=== PATIENT | female | born 1955 | race Caucasian/White ===

== ENCOUNTER 2017-12-02 05:12 | Observation (INO) | payer BC, SELFPAY ==
[2017-12-02] VITALS (13 sets, daily range): BP systolic 112–145; BP diastolic 52–87; PULSE 56–71; RESP 12–24; TEMP 36.6–36.9; O2SAT 97–100; BMI 23.3; BMI 22.2; BMI 22.3
--- NOTE | 2017-12-02 05:30 | RAD_ITS ---
STUDY: X-RAY CHEST REASON FOR EXAM: Female, 61 years old. Abdominal pain TECHNIQUE: Frontal view COMPARISON: 10/13/2017 FINDINGS: The lungs are clear and expanded. There is no demonstrated pleural abnormality. Normal size heart. Normal mediastinum and soraida. Normal visualized pulmonary arteries. Normal visualized aortic arch and descending thoracic aorta. Normal visualized thoracic spine. Normal visualized ribs, clavicles, and shoulders. There is no demonstrated abnormality of the visualized soft tissue structures of the upper abdomen. RAD/Chest 1 View (Portable) IMPRESSION: Normal x-ray examination of the chest. Electronically Signed: Rick Hernandez MD at 5:58 EDT , Service support ,
--- NOTE | 2017-12-02 05:30 | EKG12_ITS ---
Test Reason : CP Blood Pressure : / mmHG Vent. Rate : 061 BPM Atrial Rate : 061 BPM P-R Int : 174 ms QRS Dur : 080 ms QT Int : 420 ms P-R-T Axes : 057 018 007 degrees QTc Int : 422 ms Normal sinus rhythm Low voltage QRS Nonspecific ST abnormality Abnormal ECG Confirmed by ZANDER ARORA, DAMON ([id number]), photographic editor BEL SCHMIDT ([id number]) on 12/03/2017 11:52:34 AM Referred By: ULISES Confirmed By:DAMON FERMIN MD
--- NOTE | 2017-12-02 05:34 | ED.DCSUM_ITS ---
- ER Visit Summary Date of Service: 12/02/17 Chief Complaint: Epigastric pain History of Present Illness: The patient is a 61 F sudden epigastric pain awakening her at 4:30 AM. States severe cramping. Denies pain into the chest. No radicular symptoms. No nausea or vomiting. States had a bowel movement prior to arrival. Denies any diarrhea. No blood in the stools that she noted. States cramping sensation that was a 10 initially, has subsided down to a 2. History of cholecystectomy and hysterectomy. History of hypertension. Denies tobacco history. Denies diabetes history. Stress test years ago. No history of heart cath. States had similar symptoms previously, however unclear when and what exact diagnosis was given. Physical Examination: General: Alert and oriented ?3, no acute distress HEENT: Normocephalic, atraumatic. Moist mucosa membranes Neck: supple, nontender. Cardiovascular: Regular rate and rhythm, no murmurs Respiratory: Normal breath sounds, symmetric, no distress Abdomen: Soft, nontender, nondistended. Negative McBurney's or Ordoñez's tenderness. No guarding or rebound. Extremities: Nontender, no edema, pulses intact ?4 Neuro: no focal neurological deficits. Test Results: EKG: Sinus rate of 61, no ST changes. Isolated T-wave inversion in leads III. Troponin negative. Chest x-ray negative. Abdominal labs, WBC 3.8. Hemoglobin 13.8. Potassium 3.5. Creatinine 0.98. Lipase 152. ALT 103, AST 138, total bili 0.5. CT abdomen pelvis pending Emergency Department Course and Treatment: Patient nonsurgical abdomen. She came in concerns of cardiac symptoms. Cardiac workup an EKG negative. Heart scores a 2. During evaluation had intermittent transient episode increasing abdominal discomfort. Patient's lab did note slight elevation of liver enzymes. History of cholecystectomy. Secondary to this, CT abdomen pelvis IV, contrast ordered for further evaluation. In addition with atypical epigastric symptoms with sweats, plan will be to obtain repeat troponin 3 hours from first draw. Treatment Plan: [] Disposition: Pending Impression: Epigastric abdominal pain This note was generated with [employer] dictation software. It may contain incorrect words, spelling, and punctuation that were not noted in review of the chart prior to signing ED Disposition - Plan for ED Patient: Chief Complaint: Chest Pain Referrals: Wil Mar DO [Primary Care Provider] -
[2017-12-02 05:45] LABS: Absolute Lymphocyte Count 1.12 X10^3/ul (0.83-4.51); Absolute Neutrophil Count 2.2 X10^3/uL (2.0-7.7); Basophil# 0.03 X10^3/uL; Basophil% 0.8 % (0-1); Eosinophil# 0.12 X10^3/uL; Eosinophils% 3.2 % (0-5); Hematocrit 40.9 % (37-47); Hemoglobin 13.8 g/dl (12.0-15.0); Lymphocyte # 1.12 X10^3/ul (4.0); Lymphocyte % 29.8 % (19-41); Mean Corp Hgb Conc 33.7 g/gl (32-36); Mean Corpuscular Hgb 31.8 pg (27.0-32.0); Mean Corpuscular Volume 94.2 fL (81-99); Mean Platelet Vol. 10.3 fl (6.2-12.0); Neutrophil # 2.19 X10^3/uL (2.7-7.7); Neutrophil % 58.2 % (47-70); Platelet Count 158 K/mm3 (150-450); RBC Distribution Width CV 12.4 % (11.6-14.6); RBC Distribution Width SD 41.8 fl (35.1-43.9); Red Blood Count 4.34 M/mm3 (4.2-5.4); White Blood Count 3.8 K/mm3 (4.4-11.0)
--- NOTE | 2017-12-02 05:54 | ED.RN ---
pt having episode of abd cramping, n/t to extremities, sob. placed on 2L NC and encouraged to slow down breathing.
[2017-12-02 05:58] LABS: ALB/GLOB Ratio 1.1 RATIO (0.9-2.4); AST(SGOT) 138 U/L (15-37); Alanine Aminotransfer ALT/SGPT 103 U/L (13-56); Albumin, Serum 3.4 g/dL (3.2-5.0); Alkaline Phosphatase 65 U/L (45-117); Anion Gap 8 (5-15); BUN 21 mg/dL (7-18); BUN/Creat Ratio 21.5 RATIO (10-20); Calcium,Total 8.7 mg/dL (8.5-10.1); Chloride 110 mmol/L (98-107); Creatinine, Serum 0.98 mg/dL (0.55-1.02); EST Glomerular Filtration Rate 61 mL/min (>60); Est Glom Filt Rate - Afr Amer 74 mL/min (>60); Estimated Creatinine Clearance 52.72 ml/min; Globulin 3.2 g/dL (2.2-4.2); Glucose 91 mg/dL (74-106); Lipase 158 U/L (73-393); Potassium 3.5 mmol/L (3.5-5.1); Protein, Total 6.6 g/dL (6.4-8.2); Sodium Level 143 mmol/L (136-145)
--- NOTE | 2017-12-02 06:11 | CT_ITS ---
STUDY: CT ABDOMEN AND PELVIS WITH CONTRAST REASON FOR EXAM: Female, 61 years old. Dizziness RADIATION DOSAGE (If Supplied By Facility): CTDIvol = ( 10.79 ) mGy, DLP = ( 372.23 ) mGycm TECHNIQUE: Transaxial images were obtained from the dome of the diaphragm to the symphysis pubis without oral contrast. 100 ml of Isovue 300 contrast was administered. Sagittal and coronal images were reconstructed. Individualized dose optimization techniques were used for this CT. COMPARISON: None. FINDINGS: The visualized lung bases are unremarkable. The visualized portions of the heart are within normal limits. Normal liver. There has been a cholecystectomy. Bile ducts are slightly dilated. Normal spleen. Normal pancreas. Normal bilateral adrenal glands. Normal right kidney. Normal left kidney. Normal visualized stomach. Normal small intestine. Normal colon. The appendix is not identified. There is calcified plaque in the abdominal aorta. There is NO aneurysm. Normal inferior vena cava. Normal retroperitoneum. Normal urinary bladder. There has been a hysterectomy. There is NO ascites or free air, abscess or adenopathy. Normal abdominal wall. There has been lower back surgery. There is NO acute bony abnormality. CT/Abdomen/Pelvis W IV Cont ONLY IMPRESSION: There has been a cholecystectomy. Bile ducts are slightly dilated. Normal visualized stomach. Normal small intestine. Normal colon. The appendix is not identified. There is calcified plaque in the abdominal aorta. There is NO aneurysm. Normal inferior vena cava. Normal retroperitoneum. There has been a hysterectomy. There is NO ascites or free air, abscess or adenopathy. Electronically Signed: Rick Hernandez MD at 7:38 EDT , Service support ,
[2017-12-02 06:20] LABS: POSITIVE COUNT NO; POSITIVE DIFFERENTIAL NO; POSITIVE MORPHOLOGY NO
--- NOTE | 2017-12-02 08:08 | NURSING ---
HOSPITALIST FOR DR MENDES
--- NOTE | 2017-12-02 08:13 | ED.VISSUMM ---
- ER Visit Summary Date of Service: 12/02/17 Chief Complaint: [Addendum to initial dictation by Dr. Neville Cook] History of Present Illness: The patient is a 61 F [presented to the emergency department with epigastric discomfort radiating into both arms, shortness of breath, diaphoresis, and lightheadedness. Patient was evaluated primarily by Dr. Neville Cook who turned care over to me awaiting a CT result of the abdomen and pelvis as well as a delta troponin. After obtaining history from patient and evaluating patient I have concern about possible etiology of her epigastric discomfort and feel patient should be admitted for further workup and evaluation. CT scan of the abdomen and pelvis was essentially unremarkable.] Physical Examination: [HEENT-PERRLA, EOMI. Cranial nerves II through XII grossly intact. TMs clear. Mucous membranes moist. No adenopathy. Cardiovascular-regular rate and rhythm without murmur or ectopy Lungs-clear to auscultation, chest wall stable without crepitus or subcu emphysema Abdomen-normoactive bowel sounds, soft, nontender, no rebound or rigidity, no peritoneal signs. Extremities-intact ?4, normal range of motion, normal pulses, atraumatic] Test Results: [] Emergency Department Course and Treatment: [Delta troponin pending] Treatment Plan: [Admit] Disposition: [Admit] Impression: [Epigastric/chest pain-rule out acute coronary syndrome] This note was generated with [employer] dictation software. It may contain incorrect words, spelling, and punctuation that were not noted in review of the chart prior to signing ED Disposition - Plan for ED Patient: Chief Complaint: Chest Pain Referrals: Wil Mar DO [Primary Care Provider] -
[2017-12-02] MEDS: Thyroid 60 MG Tablet PO (11:01)
[2017-12-02] MEDS: buPROPion (XL) 300 MG TABLET.XL PO (11:01)
[2017-12-02] MEDS: Losartan Potassium 25 MG Tablet PO (11:01)
[2017-12-02] MEDS: Heparin Injection 5,000 UNITS/ML Syringe 5000 UNITS SC ×2 (11:02→21:29)
[2017-12-02] MEDS: Pantoprazole Sodium 40 MG Tablet PO (16:33)
--- NOTE | 2017-12-02 19:30 | PCM.HP.STD ---
Problem List (1) Chest pain Status: Acute Qualifiers: Chest pain type: precordial pain Qualified Code(s): R07.2 - Precordial pain (2) Essential hypertension, benign Status: Chronic (3) Hypothyroidism (acquired) Status: Chronic History of Present Illness Date of Admission: 12/02/17 Chief Complaint: Chest pain. Patient is a 61 years old female who presents with chest pain, admitted on 12/02/17. She woke up around 4 AM with upper abdominal pain, which was intense cramping pain. She had diaphoresis and shortness of breath with the pain but no nausea, vomiting, dizziness, palpitation, or headache. The pain resolved spontaneously after about 30 minutes, but the pain traveled to both arms and had tingling in both hands. She had intermittent milder pain in the same area, lasted much less than first pain in the ED, but they resolved spontaneously also. She also had some pinching pain that were brief in the left upper mid chest also. She has history of hypertension, but no other risk factors. He was on cholesterol medications in the past, but medication was discontinued after she lost weight, and had been controlled with diet since then. She has no family history of cardiovascular disease. Past Medical History Past Medical History (Chronic Problems): Chronic Problems Essential hypertension, benign (Chronic) Hypothyroidism (acquired) (Chronic) Allergies duloxetine HCl [From Cymbalta] Allergy (Verified 10/13/16 15:33) Rash Home Medications: Ambulatory Orders Medication Instructions Recorded Aspirin [Aspirin, Baby] 81 mg PO DAILY@0800 10/13/16 Bupropion HCl [Wellbutrin Xl] 300 mg PO DAILY 12/02/17 Losartan Potassium [Cozaar] 25 mg PO DAILY 12/02/17 Thyroid [[place] Thyroid] 60 mg PO DAILY 12/02/17 Surgical History: cholecystectomy, hysterectomy Psychiatric History: No pertinent psych hx Lives: Spouse/ Significant Other Smoking Status: Never smoker - *Family History Maternal History Items: No pertinent history Review of Systems Comment: ROS: In general: Patient has been in good health, denied of any constitutional symptoms, such as weight loss, or gain, fever, chills, or night sweats. Patient denied of any profound fatigue. HEENT: Unremarkable. Patient denied of any dizziness, chronic headache, blurred vision, double vision, dry mouth, or nasal congestion. CV/respiratory: See HPI. GI: Patient denied any abdominal pain, nausea, vomiting, diarrhea, constipation, melena, or hematochezia. : Patient denied any significant urinary symptoms. Neurology: Unremarkable. There is no history of seizure as an adult. Psychological: Unremarkable. ?. Endocrine: Unremarkable. Musculoskeletal: Unremarkable. VTE Information - Inpt Only VTE Present on Admission: Yes VTE Mechan Device Prophylaxis: Knee High KENNY Hose VTE Pharm Prophylaxis ordered?: Yes Patient Problems: Active and Suspected Problems Chest pain (Acute) Objective: In general, patient is a well-nourished and developed adult. HEENT: Head is atraumatic, and normocephalic. Pupils are equal, round, and reactive to light and accommodations. Neck is supple. There is no lymphadenopathy, or thyromegaly. Oral mucosa is pink, and moist. There are no lesions. Heart: Auscultation is normal with regular rhythm and rate. There is no extra heart sounds, or murmurs. S1 and S2 are present. Point of maximal impulse is not displaced. Lungs: Lungs are clear to auscultation bilaterally. There is no wheezing, or crackles. Abdomen: Abdominal wall is non-tender, and non-distended. There is no palpable mass or organomegaly. Normoactive bowel sounds are present. Extremities: There is no cyanosis or clubbing. Peripheral pulses are palpable. There is no edema. Skin: There are no any skin discoloration or lesions. Neurological: CN II - XII are intact. Sensory and motor functions are grossly normal with no obvious deficit. Cerebellar functions are within normal range. Gait was not tested. - Physical Exam Vital Signs Temp Pulse Resp BP Pulse Ox 98.4 F 62 15 126/65 H 98 12/02/17 16:10 12/02/17 16:18 12/02/17 16:10 12/02/17 16:10 12/02/17 16:10 Oxygen Flow Rate (L/min) 2 Oxygen Delivery Method Room Air Weight: 129 lb 10.109 oz Body Mass Index (BMI) 22.2 Intake and Output for Last 24 Hours 11/30/17 12/01/17 12/02/17 23:59 23:59 23:59 Intake Total 1130 / 1130 Balance 1130 / 1130 Laboratory Tests Past 24 Hrs 12/02/17 12/02/17 12/02/17 08:20 12:15 18:49 Troponin I < 0.02 < 0.02 Pending Diagnostic Data Chest X-Ray 12/02/17 05:30 IMPRESSION: Normal x-ray examination of the chest. Electronically Signed: Rick Hernandez MD at 5:58 EDT , Service support , Abdomen/Pelvis CT 12/02/17 06:11 IMPRESSION: There has been a cholecystectomy. Bile ducts are slightly dilated. Normal visualized stomach. Normal small intestine. Normal colon. The appendix is not identified. There is calcified plaque in the abdominal aorta. There is NO aneurysm. Normal inferior vena cava. Normal retroperitoneum. There has been a hysterectomy. There is NO ascites or free air, abscess or adenopathy. Electronically Signed: Rick Hernandez MD at 7:38 EDT , Service support , EKG: Normal sinus rhythm rate 61, no significant acute change, appearance similar to previous test in 2017. Assessment/Plan Active and Suspected Problems Chest pain (Acute) Patient is a 61 years old female who presents with chest pain, admitted on 12/02/17. She woke up around 4 AM with upper abdominal pain, which was intense cramping pain. She had diaphoresis and shortness of breath with the pain but no nausea, vomiting, dizziness, palpitation, or headache. The pain resolved spontaneously after about 30 minutes, but the pain traveled to both arms and had tingling in both hands. She had intermittent milder pain in the same area, lasted much less than first pain in the ED, but they resolved spontaneously also. She also had some pinching pain that were brief in the left upper mid chest also. She has history of hypertension, but no other risk factors. He was on cholesterol medications in the past, but medication was discontinued after she lost weight, and had been controlled with diet since then. She has no family history of cardiovascular disease. #1 Chest pain. Somewhat atypical, but hand binder stripper symptoms and associated symptoms of diaphoresis and dyspnea are concerning. Serial troponin to rule out myocardial infarction. Plan to proceed with stress nuclear myocardial perfusion scan in AM. Start PPI empirically. #2 Essential hypertension. Continue losartan. #3 Hypothyroid. Continue armour thyroid. VTE prophylaxis: Heparin SQ. GI prophylaxis: PPI po. Patient is full code. Disposition: Home in 1 to 2 days. Code Visit OBSV E&M: 83719 Initial observation care L3
--- NOTE | 2017-12-02 19:43 | HP.PCM_ITS ---
Problem List (1) Chest pain Status: Acute Qualifiers: Chest pain type: precordial pain Qualified Code(s): R07.2 - Precordial pain (2) Essential hypertension, benign Status: Chronic (3) Hypothyroidism (acquired) Status: Chronic History of Present Illness Date of Admission: 12/02/17 Chief Complaint: Chest pain. Patient is a 61 years old female who presents with chest pain, admitted on 12/02/17. She woke up around 4 AM with upper abdominal pain, which was intense cramping pain. She had diaphoresis and shortness of breath with the pain but no nausea, vomiting, dizziness, palpitation, or headache. The pain resolved spontaneously after about 30 minutes, but the pain traveled to both arms and had tingling in both hands. She had intermittent milder pain in the same area, lasted much less than first pain in the ED, but they resolved spontaneously also. She also had some pinching pain that were brief in the left upper mid chest also. She has history of hypertension, but no other risk factors. He was on cholesterol medications in the past, but medication was discontinued after she lost weight, and had been controlled with diet since then. She has no family history of cardiovascular disease. Past Medical History Past Medical History (Chronic Problems): Chronic Problems Essential hypertension, benign (Chronic) Hypothyroidism (acquired) (Chronic) Allergies duloxetine HCl [From Cymbalta] Allergy (Verified 10/13/16 15:33) Rash Home Medications: Ambulatory Orders Medication Instructions Recorded Aspirin [Aspirin, Baby] 81 mg PO DAILY@0800 10/13/16 Bupropion HCl [Wellbutrin Xl] 300 mg PO DAILY 12/02/17 Losartan Potassium [Cozaar] 25 mg PO DAILY 12/02/17 Thyroid [[place] Thyroid] 60 mg PO DAILY 12/02/17 Surgical History: cholecystectomy, hysterectomy Psychiatric History: No pertinent psych hx Lives: Spouse/ Significant Other Smoking Status: Never smoker - *Family History Maternal History Items: No pertinent history Review of Systems Comment: ROS: In general: Patient has been in good health, denied of any constitutional symptoms, such as weight loss, or gain, fever, chills, or night sweats. Patient denied of any profound fatigue. HEENT: Unremarkable. Patient denied of any dizziness, chronic headache, blurred vision, double vision, dry mouth, or nasal congestion. CV/respiratory: See HPI. GI: Patient denied any abdominal pain, nausea, vomiting, diarrhea, constipation, melena, or hematochezia. : Patient denied any significant urinary symptoms. Neurology: Unremarkable. There is no history of seizure as an adult. Psychological: Unremarkable. ?. Endocrine: Unremarkable. Musculoskeletal: Unremarkable. VTE Information - Inpt Only VTE Present on Admission: Yes VTE Mechan Device Prophylaxis: Knee High KENNY Hose VTE Pharm Prophylaxis ordered?: Yes Patient Problems: Active and Suspected Problems Chest pain (Acute) Objective: In general, patient is a well-nourished and developed adult. HEENT: Head is atraumatic, and normocephalic. Pupils are equal, round, and reactive to light and accommodations. Neck is supple. There is no lymphadenopathy, or thyromegaly. Oral mucosa is pink, and moist. There are no lesions. Heart: Auscultation is normal with regular rhythm and rate. There is no extra heart sounds, or murmurs. S1 and S2 are present. Point of maximal impulse is not displaced. Lungs: Lungs are clear to auscultation bilaterally. There is no wheezing, or crackles. Abdomen: Abdominal wall is non-tender, and non-distended. There is no palpable mass or organomegaly. Normoactive bowel sounds are present. Extremities: There is no cyanosis or clubbing. Peripheral pulses are palpable. There is no edema. Skin: There are no any skin discoloration or lesions. Neurological: CN II - XII are intact. Sensory and motor functions are grossly normal with no obvious deficit. Cerebellar functions are within normal range. Gait was not tested. - Physical Exam Vital Signs Temp Pulse Resp BP Pulse Ox 98.4 F 62 15 126/65 H 98 12/02/17 16:10 12/02/17 16:18 12/02/17 16:10 12/02/17 16:10 12/02/17 16:10 Oxygen Flow Rate (L/min) 2 Oxygen Delivery Method Room Air Weight: 129 lb 10.109 oz Body Mass Index (BMI) 22.2 Intake and Output for Last 24 Hours 11/30/17 12/01/17 12/02/17 23:59 23:59 23:59 Intake Total 1130 / 1130 Balance 1130 / 1130 Laboratory Tests Past 24 Hrs 12/02/17 12/02/17 12/02/17 08:20 12:15 18:49 Troponin I < 0.02 < 0.02 Pending Diagnostic Data Chest X-Ray 12/02/17 05:30 IMPRESSION: Normal x-ray examination of the chest. Electronically Signed: Rick Hernandez MD at 5:58 EDT , Service support , Abdomen/Pelvis CT 12/02/17 06:11 IMPRESSION: There has been a cholecystectomy. Bile ducts are slightly dilated. Normal visualized stomach. Normal small intestine. Normal colon. The appendix is not identified. There is calcified plaque in the abdominal aorta. There is NO aneurysm. Normal inferior vena cava. Normal retroperitoneum. There has been a hysterectomy. There is NO ascites or free air, abscess or adenopathy. Electronically Signed: Rick Hernandez MD at 7:38 EDT , Service support , EKG: Normal sinus rhythm rate 61, no significant acute change, appearance similar to previous test in 2017. Assessment/Plan Active and Suspected Problems Chest pain (Acute) Patient is a 61 years old female who presents with chest pain, admitted on 12/02/17. She woke up around 4 AM with upper abdominal pain, which was intense cramping pain. She had diaphoresis and shortness of breath with the pain but no nausea, vomiting, dizziness, palpitation, or headache. The pain resolved spontaneously after about 30 minutes, but the pain traveled to both arms and had tingling in both hands. She had intermittent milder pain in the same area, lasted much less than first pain in the ED, but they resolved spontaneously also. She also had some pinching pain that were brief in the left upper mid chest also. She has history of hypertension, but no other risk factors. He was on cholesterol medications in the past, but medication was discontinued after she lost weight, and had been controlled with diet since then. She has no family history of cardiovascular disease. #1 Chest pain. Somewhat atypical, but paramedic symptoms and associated symptoms of diaphoresis and dyspnea are concerning. Serial troponin to rule out myocardial infarction. Plan to proceed with stress nuclear myocardial perfusion scan in AM. Start PPI empirically. #2 Essential hypertension. Continue losartan. #3 Hypothyroid. Continue armour thyroid. VTE prophylaxis: Heparin SQ. GI prophylaxis: PPI po. Patient is full code. Disposition: Home in 1 to 2 days. Code Visit OBSV E&M: [id number] Initial observation care L3
[2017-12-03 00:05] VITALS: PULSE 58
[2017-12-03 01:30] VITALS: BP 109/71; PULSE 58; RESP 16; TEMP 36.5; O2SAT 98
[2017-12-03 04:24] VITALS: PULSE 62
[2017-12-03 05:33] LABS: Hemoglobin 13.6 g/dl (12.0-15.0); Mean Corpuscular Hgb 32.2 pg (27.0-32.0); Mean Corpuscular Volume 94.6 fL (81-99); Mean Platelet Vol. 10.2 fl (6.2-12.0); Platelet Count 146 K/mm3 (150-450); RBC Distribution Width CV 12.3 % (11.6-14.6); RBC Distribution Width SD 41.9 fl (35.1-43.9); Red Blood Count 4.23 M/mm3 (4.2-5.4); White Blood Count 3.7 K/mm3 (4.4-11.0)
[2017-12-03 05:35] LABS: Scan Indicated on CBC? Y/N NO
[2017-12-03] MEDS: Losartan Potassium 25 MG Tablet PO (05:56)
[2017-12-03] MEDS: Aspirin E.C. 81 MG Tablet PO (05:56)
[2017-12-03] MEDS: Thyroid 60 MG Tablet PO (05:56)
[2017-12-03 06:10] LABS: Anion Gap 7 (5-15); BUN 18 mg/dL (7-18); BUN/Creat Ratio 23.1 RATIO (10-20); Calcium,Total 8.3 mg/dL (8.5-10.1); Chloride 113 mmol/L (98-107); Creatinine, Serum 0.78 mg/dL (0.55-1.02); EST Glomerular Filtration Rate 80 mL/min (>60); Est Glom Filt Rate - Afr Amer 97 mL/min (>60); Estimated Creatinine Clearance 66.23 ml/min; Glucose 89 mg/dL (74-106); Potassium 3.9 mmol/L (3.5-5.1); Sodium Level 145 mmol/L (136-145); Thyroid Stim Hormone (TSH) 0.27 uIU/mL (0.358-3.74)
[2017-12-03 08:29] VITALS: BP 109/69; PULSE 65; RESP 12; TEMP 36.8; O2SAT 100
[2017-12-03] MEDS: buPROPion (XL) 300 MG TABLET.XL PO (08:37)
[2017-12-03] MEDS: Pantoprazole Sodium 40 MG Tablet PO (08:37)
--- NOTE | 2017-12-03 09:10 | STRESSREP ---
Stress Test Report Date: 12/03/2017 Procedure: Exercise tolerance test/imaging study Indications: Chest pain Consent: Per the patient Procedure: The patient exercised on a Nikolai protocol for 10 minutes and 30 seconds completing Stage III and 1 minute 30 seconds of Stage IV achieving a peak heart rate of 153 bpm (95 % predicted maximal heart rate) with a peak blood pressure 160/64 mmHg and a peak MET capacity of 12 METs. The baseline ECG demonstrated normal sinus rhythm. The peak exercise ECG demonstrated Somatic/motion artifact with no obvious ECG changes. There were no cardiac dysrhythmias pretest, during exercise, or recovery. The functional capacity was considered good. There was no complaint of chest discomfort during exercise or recovery. The examination was discontinued secondary to leg discomfort. Impression: 1. Technically adequate (percent predicted maximal heart rate greater than 85%) exercise tolerance test 2. Peak exercise ECG with somatic/motion artifact with no obvious ECG changes 3. There were no cardiac dysrhythmias pretest, during exercise, or recovery. 4. Nuclear images pending Myocardial perfusion imaging study: Technique: The patient was injected with 11.1 mCi of technetium 99m Cardiolite and subsequently rest SPECT Cardiolite nuclear imaging was obtained in the horizontal long, vertical long, and short axis views. The patient exercised on a Nikolai protocol for 10 minutes and 30 seconds completing Stage III and 1 minute 30 seconds of Stage IV achieving a peak heart rate of 153 bpm (95 % predicted maximal heart rate) with a peak blood pressure 160/64 mmHg and a peak MET capacity of 12 METs. The patient was injected with 33.2 mCi of technetium 99m Cardiolite and subsequently stress SPECT Cardiolite nuclear imaging was obtained in the horizontal long, vertical long, and short axis views. A gated Cardiolite study at peak stress was obtained. Interpretation: Rest and stress SPECT Cardiolite nuclear imaging status post realignment, normalization, and attenuation correction, demonstrates the appearance of relative uniform tracer uptake and myocardial perfusion appearing within normal limits. There is end systolic thickening and brightening. The gated Cardiolite study demonstrates myocardial thickening and inward wall motion. The reported LVEF is 72 %. Impression: 1. Rest and stress SPECT Cardiolite nuclear imaging demonstrate relative uniform tracer uptake and myocardial perfusion appearing within normal limits. 2. The gated Cardiolite study reports an LVEF of 72 %. This note was generated with [employer] software. It may contain incorrect words, spelling, and punctuation that were not noted in checking the note before signing.
--- NOTE | 2017-12-03 09:16 | STRESSREP_ITS ---
Stress Test Report Date: 12/03/2017 Procedure: Exercise tolerance test/imaging study Indications: Chest pain Consent: Per the patient Procedure: The patient exercised on a Nikolai protocol for 10 minutes and 30 seconds completing Stage III and 1 minute 30 seconds of Stage IV achieving a peak heart rate of 153 bpm (95 % predicted maximal heart rate) with a peak blood pressure 160/64 mmHg and a peak MET capacity of 12 METs. The baseline ECG demonstrated normal sinus rhythm. The peak exercise ECG demonstrated Somatic/motion artifact with no obvious ECG changes. There were no cardiac dysrhythmias pretest, during exercise, or recovery. The functional capacity was considered good. There was no complaint of chest discomfort during exercise or recovery. The examination was discontinued secondary to leg discomfort. Impression: 1. Technically adequate (percent predicted maximal heart rate greater than 85% ) exercise tolerance test 2. Peak exercise ECG with somatic/motion artifact with no obvious ECG changes 3. There were no cardiac dysrhythmias pretest, during exercise, or recovery. 4. Nuclear images pending Myocardial perfusion imaging study: Technique: The patient was injected with 11.1 mCi of technetium 99m Cardiolite and subsequently rest SPECT Cardiolite nuclear imaging was obtained in the horizontal long, vertical long, and short axis views. The patient exercised on a Nikolai protocol for 10 minutes and 30 seconds completing Stage III and 1 minute 30 seconds of Stage IV achieving a peak heart rate of 153 bpm (95 % predicted maximal heart rate) with a peak blood pressure 160/64 mmHg and a peak MET capacity of 12 METs. The patient was injected with 33.2 mCi of technetium 99m Cardiolite and subsequently stress SPECT Cardiolite nuclear imaging was obtained in the horizontal long, vertical long, and short axis views. A gated Cardiolite study at peak stress was obtained. Interpretation: Rest and stress SPECT Cardiolite nuclear imaging status post realignment, normalization, and attenuation correction, demonstrates the appearance of relative uniform tracer uptake and myocardial perfusion appearing within normal limits. There is end systolic thickening and brightening. The gated Cardiolite study demonstrates myocardial thickening and inward wall motion. The reported LVEF is 72 %. Impression: 1. Rest and stress SPECT Cardiolite nuclear imaging demonstrate relative uniform tracer uptake and myocardial perfusion appearing within normal limits. 2. The gated Cardiolite study reports an LVEF of 72 %. This note was generated with [employer] software. It may contain incorrect words, spelling, and punctuation that were not noted in checking the note before signing.
[2017-12-03 11:00] VITALS: PULSE 73
--- NOTE | 2017-12-03 11:12 | PCM.DC ---
- Discharge Diagnoses Current Active Problems: Current Active and Chronic Problems Chest pain (Acute) Essential hypertension, benign (Chronic) Hypothyroidism (acquired) (Chronic) Reason(s) for Visit for Discharge Instructions: Chest pain You will use the following diet at home:: Cardiac Your food should be the consistency of: Regular Your liquids should be the consistency of: Regular/Thin Discharge Activity: Return to Normal Activity Allergies/Adverse Reactions: Allergies duloxetine HCl [From Cymbalta] Allergy (Verified 10/13/16 15:33) Rash Medications to take at Discharge Aspirin [Aspirin, Baby] 81 mg PO DAILY@0800 10/13/16 Bupropion HCl [Wellbutrin Xl] 300 mg PO DAILY 12/02/17 Losartan Potassium [Cozaar] 25 mg PO DAILY 12/02/17 Thyroid [[place] Thyroid] 60 mg PO DAILY 12/02/17 Pantoprazole Sodium [Protonix] 40 mg PO DAILY #30 tab 12/03/17 The following prescriptions were given: Pantoprazole Sodium [Protonix] 40 mg PO DAILY #30 tab Primary Care Physician: Wil Mar DO [Primary Care Provider] - Please follow up with your Primary Care Physician in: 5 to 7 days.
--- NOTE | 2017-12-03 11:14 | PCM.DC.SUM ---
Discharge Date and Diagnosis - Problem List Patient Problems: Active and Suspected Problems Chest pain (Acute) Date of Admission: 12/02/17 Date of Discharge: 12/03/17 - Primary Discharge Diagnosis Active and Suspected Problems Chest pain (Acute) - Secondary Discharge Diagnosis Chronic Problems Essential hypertension, benign (Chronic) Hypothyroidism (acquired) (Chronic) Hospital Course and Treatment Imaging Results: 12/03/17 05:55 Nuclear Stress Test - Treadmil [NM] AM (NON MEDS) NEGATIVE. Diagnostic Data Chest X-Ray 12/02/17 05:30 IMPRESSION: Normal x-ray examination of the chest. Electronically Signed: Rick Hernandez MD at 5:58 EDT , Service support , Abdomen/Pelvis CT 12/02/17 06:11 IMPRESSION: There has been a cholecystectomy. Bile ducts are slightly dilated. Normal visualized stomach. Normal small intestine. Normal colon. The appendix is not identified. There is calcified plaque in the abdominal aorta. There is NO aneurysm. Normal inferior vena cava. Normal retroperitoneum. There has been a hysterectomy. There is NO ascites or free air, abscess or adenopathy. Electronically Signed: Rick Hernandez MD at 7:38 EDT , Service support , Refinery Operator Polymerization Plant: none. Operations: None Procedures: Stress test Summary of Care Provided: Patient is a 61 years old female who presents with chest pain, admitted on 12/02/17. She woke up around 4 AM with upper abdominal pain, which was intense cramping pain. She had diaphoresis and shortness of breath with the pain but no nausea, vomiting, dizziness, palpitation, or headache. The pain resolved spontaneously after about 30 minutes, but the pain traveled to both arms and had tingling in both hands. She had intermittent milder pain in the same area, lasted much less than first pain in the ED, but they resolved spontaneously also. She also had some pinching pain that were brief in the left upper mid chest also. She has history of hypertension, but no other risk factors. He was on cholesterol medications in the past, but medication was discontinued after she lost weight, and had been controlled with diet since then. She has no family history of cardiovascular disease. #1 Chest pain. Serial troponin were negative, underwent stress nuclear myocardial perfusion scan, which was negative. She did not have any more episodes of above symptoms. Started on pantoprazole empirically, plan to continue for 2 month for possible GI origin of chest pain. Consider further work up as outpatient, particularly if any of abdominal symptoms recurs. Follow up with PCP in 5 to 7 days. #2 Essential hypertension. Continue losartan. #3 Hypothyroid. Continue armour thyroid. VTE prophylaxis: Heparin SQ. GI prophylaxis: PPI po. Patient is full code. Disposition: Home Discharge Diet: - - cardiac. Discharge Activity: Return to Normal Activity Home Medications: Medications to take at Discharge Aspirin [Aspirin, Baby] 81 mg PO DAILY@0800 10/13/16 Bupropion HCl [Wellbutrin Xl] 300 mg PO DAILY 12/02/17 Losartan Potassium [Cozaar] 25 mg PO DAILY 12/02/17 Thyroid [[place] Thyroid] 60 mg PO DAILY 12/02/17 Pantoprazole Sodium [Protonix] 40 mg PO DAILY #30 tab 12/03/17 Following Prescrptions Were Given to Patient: Pantoprazole Sodium [Protonix] 40 mg PO DAILY #30 tab Primary Care Physician: Wil Mar DO [Primary Care Provider] - Please follow up with your Primary Care Physician in: 5 to 7 days. Disposition: Home Patient Condition:: Good Medical Necessity - Tobacco Use Smoking Status: Never smoker Meaningful Use Info Meaningful Use Diagnoses (Choose all that apply): None applicable Code Visit OBSV E&M: 48314 Observation care discharge
--- NOTE | 2017-12-03 11:19 | DS.PCM_ITS ---
Discharge Date and Diagnosis - Problem List Patient Problems: Active and Suspected Problems Chest pain (Acute) Date of Admission: 12/02/17 Date of Discharge: 12/03/17 - Primary Discharge Diagnosis Active and Suspected Problems Chest pain (Acute) - Secondary Discharge Diagnosis Chronic Problems Essential hypertension, benign (Chronic) Hypothyroidism (acquired) (Chronic) Hospital Course and Treatment Imaging Results: 12/03/17 05:55 Nuclear Stress Test - Treadmil [NM] AM (NON MEDS) NEGATIVE. Diagnostic Data Chest X-Ray 12/02/17 05:30 IMPRESSION: Normal x-ray examination of the chest. Electronically Signed: Rick Hernandez MD at 5:58 EDT , Service support , Abdomen/Pelvis CT 12/02/17 06:11 IMPRESSION: There has been a cholecystectomy. Bile ducts are slightly dilated. Normal visualized stomach. Normal small intestine. Normal colon. The appendix is not identified. There is calcified plaque in the abdominal aorta. There is NO aneurysm. Normal inferior vena cava. Normal retroperitoneum. There has been a hysterectomy. There is NO ascites or free air, abscess or adenopathy. Electronically Signed: Rick Hernandez MD at 7:38 EDT , Service support , Bpm Solution Architect: none. Operations: None Procedures: Stress test Summary of Care Provided: Patient is a 61 years old female who presents with chest pain, admitted on 12/02/17. She woke up around 4 AM with upper abdominal pain, which was intense cramping pain. She had diaphoresis and shortness of breath with the pain but no nausea, vomiting, dizziness, palpitation, or headache. The pain resolved spontaneously after about 30 minutes, but the pain traveled to both arms and had tingling in both hands. She had intermittent milder pain in the same area, lasted much less than first pain in the ED, but they resolved spontaneously also. She also had some pinching pain that were brief in the left upper mid chest also. She has history of hypertension, but no other risk factors. He was on cholesterol medications in the past, but medication was discontinued after she lost weight, and had been controlled with diet since then. She has no family history of cardiovascular disease. #1 Chest pain. Serial troponin were negative, underwent stress nuclear myocardial perfusion scan, which was negative. She did not have any more episodes of above symptoms. Started on pantoprazole empirically, plan to continue for 2 month for possible GI origin of chest pain. Consider further work up as outpatient, particularly if any of abdominal symptoms recurs. Follow up with PCP in 5 to 7 days. #2 Essential hypertension. Continue losartan. #3 Hypothyroid. Continue armour thyroid. VTE prophylaxis: Heparin SQ. GI prophylaxis: PPI po. Patient is full code. Disposition: Home Discharge Diet: - - cardiac. Discharge Activity: Return to Normal Activity Home Medications: Medications to take at Discharge Aspirin [Aspirin, Baby] 81 mg PO DAILY@0800 10/13/16 Bupropion HCl [Wellbutrin Xl] 300 mg PO DAILY 12/02/17 Losartan Potassium [Cozaar] 25 mg PO DAILY 12/02/17 Thyroid [[place] Thyroid] 60 mg PO DAILY 12/02/17 Pantoprazole Sodium [Protonix] 40 mg PO DAILY #30 tab 12/03/17 Following Prescrptions Were Given to Patient: Pantoprazole Sodium [Protonix] 40 mg PO DAILY #30 tab Primary Care Physician: Wil Mar DO [Primary Care Provider] - Please follow up with your Primary Care Physician in: 5 to 7 days. Disposition: Home Patient Condition:: Good Medical Necessity - Tobacco Use Smoking Status: Never smoker Meaningful Use Info Meaningful Use Diagnoses (Choose all that apply): None applicable Code Visit OBSV E&M: 70237 Observation care discharge
== END 2017-12-03 11:13 | disposition home or self-care (01) ==
LOC: ED 06:04 → PCU 08:28
PROVIDERS: Admitting Provider Hospitalist; Emergency Provider Emergency Medicine; Family Provider Student in an Organized Health Care Education/Training Program; PCP Student in an Organized Health Care Education/Training Program; Visit Provider Hospitalist
DX: R07.89 Other chest pain (principal); I10 Essential (primary) hypertension; E03.9 Hypothyroidism, unspecified; Z79.899 Other long term (current) drug therapy; Z79.82 Long term (current) use of aspirin
CPT/HCPCS: 36415; 71045; 74177; 78452; 80048; 80053; 83690; 84443; 84484; 85025; 85027; 93005; 93017; 96360; 96361; 96372; 99218; 99285; A9500; J7030; J7040; Q9967; A4216; G0378

== ENCOUNTER → 2018-05-23 09:28 | Outpatient (CLI) | payer BC, SELFPAY ==
[2018-05-23 11:00] LABS: Hematocrit 39.8 % (37-47); Hemoglobin 13.3 g/dl (12.0-15.0); Mean Corp Hgb Conc 33.4 g/gl (32-36); Mean Corpuscular Hgb 31.4 pg (27.0-32.0); Mean Corpuscular Volume 94.1 fL (81-99); Mean Platelet Vol. 10.9 fl (6.2-12.0); Platelet Count 157 K/mm3 (150-450); RBC Distribution Width CV 12.7 % (11.6-14.6); RBC Distribution Width SD 42.9 fl (35.1-43.9); Red Blood Count 4.23 M/mm3 (4.2-5.4); White Blood Count 3.4 K/mm3 (4.4-11.0)
[2018-05-23 11:02] LABS: Scan Indicated on CBC? Y/N NO
[2018-05-23 11:18] LABS: Progesterone Level 0.16 ng/mL (See Comment)
[2018-05-23 11:20] LABS: Hemoglobin A1c 5.1 % (4.2-6.3)
[2018-05-23 11:28] LABS: Estradiol < 11.0 pg/mL; Free T3 3.3 pg/mL (2.18-3.98); T4 Free Direct 0.71 ng/dL (0.76-1.46); Thyroid Stim Hormone (TSH) 0.44 uIU/mL (0.358-3.74)
[2018-05-24 09:47] LABS: DHEA Sulfate 6.5 ug/dL (29.4-220.5)
== END ==
PROVIDERS: Visit Provider Obstetrics & Gynecology
DX: Z78.0 Asymptomatic menopausal state (principal)
CPT/HCPCS: 36415; 82533; 82627; 82670; 83036; 84144; 84403; 84439; 84443; 84481; 85027; 82626

== ENCOUNTER → 2018-12-21 | Outpatient (CLI) | payer BC, SELFPAY ==
[2017-12-02 09:44] VITALS: BMI 22.2
[2018-12-21 13:32] LABS: Hematocrit 44.9 % (37-47); Hemoglobin 14.9 g/dl (12.0-15.0); Mean Corp Hgb Conc 33.2 g/gl (32-36); Mean Corpuscular Hgb 30.5 pg (27.0-32.0); Mean Corpuscular Volume 91.8 fL (81-99); Mean Platelet Vol. 11.1 fl (6.2-12.0); Platelet Count 197 K/mm3 (150-450); RBC Distribution Width CV 12.6 % (11.6-14.6); RBC Distribution Width SD 41.7 fl (35.1-43.9); Red Blood Count 4.89 M/mm3 (4.2-5.4); White Blood Count 3.8 K/mm3 (4.4-11.0)
[2018-12-21 13:38] LABS: Scan Indicated on CBC? Y/N NO
[2018-12-21 13:47] LABS: Estradiol < 11.0 pg/mL; Free T3 4.8 pg/mL (2.18-3.98); T4 Free Direct 0.92 ng/dL (0.76-1.46); Thyroid Stim Hormone (TSH) 0.02 uIU/mL (0.358-3.74)
[2018-12-21 14:06] LABS: Hemoglobin A1c 5.3 % (4.2-6.3)
[2018-12-21 14:35] LABS: Progesterone Level 0.32 ng/mL (See Comment)
[2018-12-23 13:01] LABS: DHEA Sulfate 9.7 ug/dL (29.4-220.5)
== END | disposition home or self-care (01) ==
LOC: WOBLAB 11:32
PROVIDERS: Visit Provider Obstetrics & Gynecology
DX: Z78.0 Asymptomatic menopausal state (principal)
CPT/HCPCS: 36415; 82533; 82627; 82670; 83036; 84144; 84403; 84439; 84443; 84481; 85027; 82626

== ENCOUNTER → 2018-12-26 | Outpatient (CLI) | payer BC, SELFPAY ==
[2018-12-26 14:08] VITALS: BMI 23.5
--- NOTE | 2018-12-26 15:10 | RAD_ITS ---
STUDY: X-RAY CHEST REASON FOR EXAM: Female, 63 years old. Pain TECHNIQUE: PA and lateral views of the chest. COMPARISON: 12/02/2017 chest x-ray FINDINGS: The Lung markings are similar to the prior study with minimal interstitial prominence within the right middle lobe stable since prior study. There is no demonstrated pleural abnormality. Normal size heart. Normal mediastinum and soraida. Normal visualized pulmonary arteries. There is atherosclerotic tortuosity of the aortic arch and descending thoracic aorta. There are diffuse degenerative changes of the visualized thoracic spine. Normal visualized ribs, clavicles, and shoulders. There is postoperative change in the right upper quadrant status post cholecystectomy. RAD/Chest PA and Lateral IMPRESSION: Degenerative changes, as described above. No demonstrated acute cardiopulmonary process. Electronically Signed: Yumiko Berg MD at 18:42 EDT Tel , Service support ,
== END | disposition home or self-care (01) ==
LOC: RAD 15:01
PROVIDERS: Family Provider Student in an Organized Health Care Education/Training Program; PCP Student in an Organized Health Care Education/Training Program; Referring Provider Surgery; Visit Provider Surgery
DX: R07.89 Other chest pain (principal)
CPT/HCPCS: 71046

== ENCOUNTER 2019-07-17 11:30 | Outpatient (RCR) | payer BC, SELFPAY ==
[2018-12-26 14:08] VITALS: BMI 23.5
--- NOTE | 2019-06-23 14:38 | HP.OTEVAL ---
Patient's Visit Information CINTHYA SHEEHAN is a 63 year old F, referred to Occupational Therapy by Wil Mar DO, with a diagnosis of Bilateral hand pain. Date of Evaluation: 06/22/19 Occupational Therapist: Harika Roy, OTR/Tariq - Subjective Subjective: Arrived and noted she was referred by Dr. Mar due to ongoing hand pain. She noted that she has psoriatic arthritis which she was diagnosed early adulthood. She noted that she has had increased pain in hands with increased nodule formation around DIPs of fingers. Jinny has concerns of further deformation of joint sin hands and noted further pain in MP of bilateral thumbs. She was also referred to vehicle fare collector but have not follow up yet but is planning on scheduling an appointment in upcoming weeks. 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 She noted that she does not completed computer tasks but writing can be very limiting. - Pain R hand 8 Pain Intensity Range: 1, 8 L hand 8 Pain Intensity Range: 1, 8 - Objective Objective/Observation: Good skin integrity; nodules present at DIP of R hand and L hands. Nodules appear to be more present on right hand. Increased tenderness with palpation on bilateral thumb MP joints with some increase in joint size noted. No grinding noted at CMC but appears to have some instability. Tenderness with palpation around scaphoid. No ulnar drift present. - ROM Forearm: WFL Wrist: flexion R 0-51, L 0-73; extentsion R 0-45, L 0-44 Radial Abduction: R 0-36, L 0-36 MP: WFL PIP: WFL DIP: WFL ROM Comments: Jinny is able to form full composite fist. She exhibits increased nodules at all DIP of R and L hands. - Strength Executive Account Manager: R 39, L 42 Lateral Pinch: R 6, L 6 Tripod Pinch: R 3, L 1 Tip-to-Tip Pinch: R 1, L 2 Strength Comments: Pain noted with all resistive movements. - Sensation Thumb: R 3.61, L 2.83 Index: R 3.61, L 3.61 Middle: R 2.83, L 2.83 Ring: R 2.83, L 2.83 Little: R 2.83, L 2.83 Sensation Comments: Notes some tingling at times but nothing consisent. - Nine Hole Peg Right: 23.78 s Left: 21.69 s - Special Tests CMC Grind: negative - Quick DASH-Disab of Arm,Shoulder& Hand Quick DASH Score: 38.3325 - Goals Goal:: Jinny to increase B compensation/benefits specialist strength by 15-20 lbs topromote increased stength and stability of bilateral wrist and hands for ADL/IADls by d/c. Goal:: Jinny to be mod I to complete pain management techniques to decrease increased pain with resistive exercises 4/5 trials 80% of the time by d/c. Jinny to have no more than 1-2/10 pain consisently with use of pain management techniques 4/5 trials 80% of the time by d/c. Goal:: Jinny to exhibit proper wrist and finger ergonomics with daily tasks to promote joint integrity and manage pain 4/5 trials 80% of the time by d/c. Goal:: Jinny to be (i)- mod I to complete all ADl/IADls tasks with a/e as needed and ergonomic tools for gardening and sewing to promote increased ability to complete ADl/IADls 4/5 trials 80% of the time by d/c. Goal:: Jinny to be mod I to complete daily HEp to promote strength, stability, and pain management techniques 4/5 trials 80% of the time to promote management of b wrist pain and increased particpation in ADL/IADLS by d/c. - Rehabilitation General Assessment: Cinthya Stearns was referred to occupational therapy due to ongoing pain in wrist and hands. She has significant PMH for psoriatic arthritis and exhibits increased nodule formation around DIPs of all fingers. Nodules appear more present on right dominant hand and she noted she will experience numbness and tingling at times in hands. She has had past lumbar fusion and may need second spinal surgery. She exhibits generalized weakness throughout bilateral wrist and hands. Skilled OT warranted to promote increased wrist stability, general strengthening, ROM, ergonomics, pain management, and joint protection strategies to promote increased ability to completed use of bilateral hands and decrease pain with resistive movements. Rehabilitation Potential: Good - Anticipated Interventions Anticipated Interventions: A/AAROM/PROM, Strengthening, Modalities, Orthoses, Joint Protection/Energy Conservation, Ergonomic Education, Fine Motor Coord/Aldo, ADL Training, Caregiver Training, Home Program - Visit Plan Frequency: 2x /Week Duration: 4 Weeks General Plan: Jinny to complete 2x weekly OT for the next 4 weeks to promote increased ROM, stability, strength, joint protection and ergonomics of B wrist and hands, and general ability to return to PLOF for all ADL/IADls with ability to complete pain management techniques by d/c. TEXT: Thank you for the opportunity to evaluate your patient. For Medicare and Medicare HMO plans, please review the plan of care and approve it. It will need to be FAXED BACK to us at [phone] for Medicare purposes. Please let me know if there are questions or concerns regarding this plan of care. Physician Signature: Date:
--- NOTE | 2019-08-10 10:11 | HP.OTDCSUM ---
HP - OT D/C Summary It has been my pleasure to treat RENÉ SHEEHAN under orders from Wil Mar DO, for the diagnosis of Bilateral hand pain for a total of 8 visit(s). Please see the following information for a summary of their discharge status. - Overall Improvement % Improvement: 80 - Objective Objective/Function: Completed new measurements: Strength: - clinique counter manager R 40, L 36. - lateral 10, L 7. - tripod R 6, L '4. - pincer R 3, L 2. Positive R hand reverse phalens test, Positive on left hand for reverse phalens. Noted increased symptoms on R hand. - Goals Patient Goals: Regain Mobility, Regain Strength, Decrease Pain, Improve Fine Motor Skills, Use Hand/Wrist/Arm Normally Again, Sleep Better, Decrease Tingling/Numbness, Increase ROM, Be More Independent in ADLS, Resume Former Household Responsibilities (Cooking,Cleaning,Yard, etc.), Resume Hobbies Goal:: Jinny to increase B clinique counter manager strength by 15-20 lbs topromote increased stength and stability of bilateral wrist and hands for ADL/IADls by d/c. Goal:: Jinny to be mod I to complete pain management techniques to decrease increased pain with resistive exercises 4/5 trials 80% of the time by d/c. Jinny to have no more than 1-2/10 pain consisently with use of pain management techniques 4/5 trials 80% of the time by d/c. Goal:: Jinny to exhibit proper wrist and finger ergonomics with daily tasks to promote joint integrity and manage pain 4/5 trials 80% of the time by d/c. Goal:: Jinny to be (i)- mod I to complete all ADl/IADls tasks with a/e as needed and ergonomic tools for gardening and sewing to promote increased ability to complete ADl/IADls 4/5 trials 80% of the time by d/c. Goal:: Jinny to be mod I to complete daily HEp to promote strength, stability, and pain management techniques 4/5 trials 80% of the time to promote management of b wrist pain and increased particpation in ADL/IADLS by d/c. - Plan Plan: Jinny will be dc/'d at this time. Encouraged to follow up with accounting advisory services manager. Pain has significantly subsided. She is to call with questions/concerns. - D/C Information If there are questions or concerns regarding this patient's occupational therapy, please fell free to call me at [phone]. Thank you for the referral of this patient. Sincerely, Harika Roy, OTR/L
== END 2019-07-17 19:00 | disposition home or self-care (01) ==
LOC: OT 11:30
PROVIDERS: Family Provider Student in an Organized Health Care Education/Training Program; PCP Student in an Organized Health Care Education/Training Program; Referring Provider Student in an Organized Health Care Education/Training Program; Visit Provider Student in an Organized Health Care Education/Training Program
DX: M79.641 Pain in right hand (principal); M79.642 Pain in left hand; M19.049 Primary osteoarthritis, unspecified hand
CPT/HCPCS: 97110; 97166; 97530; 97760; 97763

== ENCOUNTER 2019-09-18 08:00 | Emergency (ER) | payer BC, SELFPAY ==
[2018-12-26 14:08] VITALS: BMI 23.5
[2019-09-18 08:01] VITALS: BP 127/64; PULSE 69; RESP 17; TEMP 36.7; O2SAT 99; BMI 22.5
--- NOTE | 2019-09-18 08:22 | EKG12_ITS ---
Test Reason : CP Blood Pressure : / mmHG Vent. Rate : 058 BPM Atrial Rate : 058 BPM P-R Int : 170 ms QRS Dur : 082 ms QT Int : 388 ms P-R-T Axes : 063 -02 016 degrees QTc Int : 380 ms Sinus bradycardia Otherwise normal ECG Confirmed by LORI ARORA, NORBERTO ([id number]), food expeditor ANNA MARIE PHELPS ([id number]) on 09/20/2019 1:45:25 PM Referred By: /GRETEL Confirmed By:NORBERTO SANDOVAL MD
--- NOTE | 2019-09-18 08:23 | ED.VIS.CHEST ---
History of Present Illness Chief Complaint: Chest Pain Informant: Patient Narrative: Patient presenting for evaluation secondary to chest pain. Patient has an underlying history of hypertension and hypothyroidism. Patient states that intermittently over the course the last couple of weeks she has been getting chest pain. She reports this is noninducible, not caused by any sort of exertion. She reports that it is a sharp electrical type pain in her chest that does not radiate. Has been associated with any shortness of breath. Patient does state that she occasionally feels somewhat lightheaded with it. Patient reports that she was basically trying to explain it away for the last couple of weeks by increased stress or caffeine usage, but today the pain seems somewhat worse and that is what prompted her to come to the emergency department. She denies any recent infectious signs or symptoms such as fever cough nausea or vomiting. She denies any skin rashes of the chest. She denies any DVT or PE risk factors. Patient did have a normal nuclear stress test about 2 years ago. Review of systems otherwise negative. Past Medical History - Allergies and Home Meds Allergies/Adverse Reactions: Allergies duloxetine HCl [From Cymbalta] Allergy (Verified 09/18/19 08:01) Rash Primary Care Physician: Wil Mar DO [Primary Care Provider] - Past Medical History: - - Hypertension, hypothyroidism Surgical History: cholecystectomy, hysterectomy Smoking Status: Never smoker - Family History Maternal Family History: Family History (Last Updated 12/26/18 @ 14:08 by Mariah Nguyen) Aunt Breast cancer Mother Thyroid disorder Hypertension High cholesterol Father Hypertension Family History: Reports: No pertinent history Review of Systems All systems negative except as indicated General: Denies: Chills, Fever, Sweats Eyes: Denies: Visual changes - bilaterally, Diplopia ENT: Denies: Rhinorrhea, Sore throat Cardiovascular: Reports: Chest pain, - - Lightheadedness Respiratory: Denies: Dyspnea, Cough, Dyspnea on exertion Gastrointestinal: Denies: Abdominal pain, Nausea, Vomiting, Diarrhea, Melena, Hematochezia Genitourinary: Denies: Dysuria, Hematuria, Frequency Musculoskeletal: Denies: Back pain, Extremity Pain Skin: Denies: Rash, Wounds Neurological: Denies: Headache, Weakness, Numbness Physical Exam Vital Signs/Narrative: Vital Signs Temp Pulse Resp BP Pulse Ox 09/18/19 08:01 98.0 F 69 17 127/64 H 99 Inital Vital Signs reviewed: Yes General: Well nourished, Well developed, No Acute Distress Head: Normocephalic, Atraumatic Eyes: Perrl, EOMI ENT: Moist mucous membranes, No rhinorrhea Neck: Supple, Nontender Cardiovascular: Regular rate, Regular rhythm, No murmurs Respiratory: No distress, CTA bilaterally, Chest nontender Abdomen: Soft, Nontender, Nondistended, Normal bowel sounds Back: Nontender, Normal Inspection Extremities: Nontender, No edema Skin: Normal color, No rash Neurological: Alert, Oriented x3, Cranial nerves II-XII grossly intact, Normal Strength, Normal Sensation Psychological: Normal affect, Normal Mood Diagnostic/Tx/Re-eval - EKG Initial EKG Interpretation: - - Sinus bradycardia with rate of 58. Isoelectric ST segments, normal T waves. Normal [place] and QTc intervals. No evidence of acute ischemia or arrhythmia. - Medical Decision Making Patient presented for evaluation secondary to chest pain. Her history sounded rather atypical, but she does have a history of hypertension. Work-up was obtained. EKG demonstrated no ischemic signs. CBC chemistry and troponin found to be unremarkable. Patient's heart score is 2, and her symptoms seem rather atypical and she has had a negative nuclear stress test within the last 2 years. I do not believe that she requires admission for cardiac rule out. Patient is low risk I feel for pulmonary embolism as she has no risk factors. Pain likely is secondary to stress or other secondary factors and does not require hospital admission or stabilization. Patient was kept in the emergency department for a 3-hour rule out delta troponin that was also found to be negative. Again the patient has a low risk factor profile, I do not believe that she requires admission or further work-up. She had resolution of her pain with a dose of Toradol. She was given reassurance she will follow-up with her primary care physician. ED Disposition - Plan for ED Patient: Disposition: Home or Assisted Living Diagnosis: Chest pain Instructions: CHEST PAIN, Uncertain Cause Referrals: Wil Mar DO [Primary Care Provider] - 1 Week
[2019-09-18 08:47] LABS: Absolute Lymphocyte Count 0.85 X10^3/uL (0.83-4.51); Absolute Neutrophil Count 2.1 X10^3/uL (2.0-7.7); Basophil# 0.02 X10^3/uL; Basophil% 0.6 % (0-1); Eosinophil# 0.06 X10^3/uL; Eosinophils% 1.8 % (0-5); Hematocrit 45.2 % (37-47); Hemoglobin 14.8 g/dL (12.0-15.0); Lymphocyte # 0.85 X10^3/ul (4.0); Mean Corp Hgb Conc 32.7 g/dL (32-36); Mean Corpuscular Hgb 31.5 pg (27.0-32.0); Mean Corpuscular Volume 96.2 fL (81-99); Mean Platelet Vol. 10.1 fl (6.2-12.0); Monocyte# 0.27 X10^3/uL; Monocyte% 8.3 % (0-10); NRBC Flagged by Analyzer 0 % (0-5); Neutrophil # 2.07 X10^3/uL (2.7-7.7); Neutrophil % 63.3 % (47-70); Platelet Count 153 K/mm3 (150-450); RBC Distribution Width CV 12.2 % (11.6-14.6); RBC Distribution Width SD 43.5 fl (35.1-43.9); White Blood Count 3.3 K/mm3 (4.4-11.0)
[2019-09-18 09:08] LABS: Anion Gap 3 (5-15); BUN 22 mg/dL (7-18); BUN/Creat Ratio 23.7 RATIO (10-20); Calcium,Total 9.3 mg/dL (8.5-10.1); Chloride 112 mmol/L (98-107); Creatinine, Serum 0.93 mg/dL (0.55-1.02); EST Glomerular Filtration Rate 65 mL/min (>60); Est Glom Filt Rate - Afr Amer 78 mL/min (>60); Estimated Creatinine Clearance 54.16 ml/min; Glucose 74 mg/dL (74-106); Potassium 4.1 mmol/L (3.5-5.1); Sodium Level 144 mmol/L (136-145)
--- NOTE | 2019-09-18 09:22 | RAD_ITS ---
STUDY: X-RAY CHEST REASON FOR EXAM: Female, 63 years old. CHEST PAIN TECHNIQUE: PA and lateral views of the chest. COMPARISON: Comparison is made with prior study dated December 26, 2018. FINDINGS: EKG electrodes are seen. The lungs are clear and expanded. There is no demonstrated pleural abnormality. Normal size heart. Normal mediastinum and soraida. Normal visualized pulmonary arteries. There is atherosclerotic calcification of the aortic arch with tortuosity. There are diffuse degenerative changes of the visualized thoracic spine. Normal visualized ribs, clavicles, and shoulders. There is no demonstrated abnormality of the visualized soft tissue structures of the upper abdomen. RAD/Chest PA and Lateral IMPRESSION: No acute abnormality is seen. Electronically Signed: Marty Huerta, at 9:51 EST , Service support ,
[2019-09-18 10:10] VITALS: PULSE 61; RESP 15; O2SAT 96
[2019-09-18] MEDS: Ketorolac 15 MG/ML Vial IV (11:19)
[2019-09-18 11:21] VITALS: PULSE 53; RESP 17; O2SAT 96
[2019-09-18 12:28] VITALS: BP 101/67; PULSE 64; RESP 18; O2SAT 98
== END 2019-09-18 12:30 | disposition home or self-care (01) ==
PROVIDERS: Emergency Provider Emergency Medicine; PCP Student in an Organized Health Care Education/Training Program
DX: R07.9 Chest pain, unspecified (principal); R06.00 Dyspnea, unspecified; R42 Dizziness and giddiness; I10 Essential (primary) hypertension; E03.9 Hypothyroidism, unspecified; Z79.82 Long term (current) use of aspirin; Z79.899 Other long term (current) drug therapy
CPT/HCPCS: 71046; 80048; 84484; 85025; 93005; 96374; 99285; A4216

== ENCOUNTER → 2020-02-19 09:16 | Outpatient (CLI) | payer BC, SELFPAY ==
[2019-11-29 12:48] VITALS: BMI 21.2
--- NOTE | 2020-02-19 09:16 | STE_ITS ---
Reason For Study: CHEST PAIN Stress Results Maximum Predicted HR: 157 bpm Target HR: 133 bpm % Maximum Predicted HR: 90 % DurationHeart Rate Stage (mm:ss) (bpm) BP BASELINE 62 118/68 STAGE 1 3:00 83 128/60 STAGE 2 3:00 97 128/60 STAGE 3 3:00 116 140/60 STAGE 4 1:31 141 / RECOVERY 72 132/74 Stress Duration: 10:31 mm:ss Maximum Stress HR: 141 bpm Baseline Echocardiogram Findings Stress Echo Wall motion Data Resting WM Intermediate WM Stress WM Interpretation Summary Exercise stress echocardiogram. Stress protocol: Resting EKG demonstrates normal sinus rhythm with a rate of 59 bpm normal intervals are noted resting blood pressure is 118/68 mmHg. The patient exercised according to the regular Nikolai protocol for a total duration of 10 minutes and 30 seconds. The maximum heart rate attained was 141 bpm which was 89% of maximum predicted heart rate and a maximum workload of 13.4 metabolic equivalents. The patient maintained sinus rhythm throughout the recording. At rest there were no ST or T wave changes noted to suggest ischemia at peak exercise upsloping ST changes only were noted with no meet the criteria for ischemia. The test was discontinued due to the target heart rate being achieved. The peak blood pressure was 142/70 mmHg. Stress echocardiographic images. Resting and stress echocardiographic images were obtained demonstrating a resting ejection fraction of 60% and a peak ejection fraction of 75%. There was thickening of all curiel and reduction of left ventricular cavity size with peaking of ejection fraction as noted above. Normal thickening was noted and no wall motion abnormalities were noted to suggest ischemia. Conclusion: Normal exercise stress echo with no wall motion abnormalities to suggest ischemia. Excellent functional aerobic capacity. No arrhythmias noted. Compared to the previous stress test the functional capacity is unchanged Ordering Physician: Avi Batres Referring Physician: Avi Batres Performed By: Thelma Cash RDCS
== END ==
PROVIDERS: PCP Student in an Organized Health Care Education/Training Program; Referring Provider Internal Medicine Cardiovascular Disease; Visit Provider Internal Medicine Cardiovascular Disease
DX: R07.2 Precordial pain (principal)
CPT/HCPCS: 93017; 93350

== ENCOUNTER 2021-04-09 19:41 | Inpatient (IN) | payer BC, SELFPAY ==
[2021-04-09 19:43] VITALS: BP 130/78; PULSE 91; RESP 14; TEMP 36.1; O2SAT 92; BMI 21.4
--- NOTE | 2021-04-09 22:05 | RAD_ITS ---
STUDY: X-RAY CHEST REASON FOR EXAM: Female, 65 years old. SOB TECHNIQUE: Single AP portable view of the chest. COMPARISON: 09/18/2019 FINDINGS: Patchy airspace disease bilaterally compatible with COVID. No consolidation or effusion. There is no demonstrated pleural abnormality. Normal size heart. Normal mediastinum and soraida. Normal visualized pulmonary arteries. Normal visualized aortic arch and descending thoracic aorta. Normal visualized thoracic spine. Normal visualized ribs, clavicles, and shoulders. There is no demonstrated abnormality of the visualized soft tissue structures of the upper abdomen. RAD/Chest 1 View (Portable) IMPRESSION: Patchy airspace disease bilaterally suggesting COVID Electronically Signed: Javon Negro DO at 22:43 EDT Tel , Service support ,
--- NOTE | 2021-04-09 22:28 | EKG12_ITS ---
Test Reason : SOB Blood Pressure : / mmHG Vent. Rate : 087 BPM Atrial Rate : 087 BPM P-R Int : 164 ms QRS Dur : 078 ms QT Int : 366 ms P-R-T Axes : 054 -03 009 degrees QTc Int : 440 ms Normal sinus rhythm Normal ECG Confirmed by ZANDER ARORA, DAMON ([id number]), tape editor ANNA MARIE PHELPS ([id number]) on 04/14/2021 9:24:14 AM Referred By: RUEL Confirmed By:DAMON FERMIN MD
--- NOTE | 2021-04-09 22:29 | ED.VIS.DYS ---
HPI History of Present Illness Chief Complaint: Shortness of Breath Narrative Narrative: 65-year-old female on vaccinated for COVID-19 presenting on day 11 of Covid symptoms. She initially had symptom onset while she was in [place]. She had a fever of 100.8 at that time. She denies current fever. She denies body aches, chills, change in taste or smell. She does state that she has developed sharp inspiratory pain in the center of her chest today. Prior to that she describes dyspnea on exertion. When she exerts herself from the living room to the bedroom she feels lightheaded and short of breath. Patient has a history of high blood pressure and hypothyroidism. She denies cardiac history. She is not on any anticoagulation. No history of DVT/PE. She states she has no respiratory issues but does have an albuterol inhaler which she has had for a couple of years that was prescribed to her. Her primary care doctor prescribed her an antibiotic to help her with the course of her COVID-19 infection. Patient does admit to generalized fatigue as well. [facility] Medical History Anxiety and depression Chronic insomnia Essential (primary) hypertension Fibromyalgia GERD (gastroesophageal reflux disease) Hyperlipidemia Hypothyroidism (acquired) Osteoarthritis Psoriatic arthritis right breast/axilla pain RLS (restless legs syndrome) Home Medications bupropion HCl 300 mg PO DAILY 12/02/17 [History Last Taken 12/01/17 08:00] losartan 25 mg PO DAILY 12/02/17 [History Last Taken 12/01/17 08:00] clobetasol 0.05 % topical ointment 1 applic TOPICAL DAILY 11/21/19 [History Last Taken Unknown] lactobacillus combo no.11 15 billion cell sprinkle capsule 1 cap PO DAILY 11/21/19 [History Last Taken Unknown] omega 3-dai-kib-fish oil 1,600 mg-500 mg-800 mg/5 mL oral liquid 5 ml PO DAILY 11/21/19 [History Last Taken Unknown] turmeric 400 mg capsule 400 mg PO DAILY cap 11/21/19 [History Last Taken Unknown] albuterol sulfate 90 mcg/actuation aerosol inhaler 1 - 2 puff INHALATION Q4H PRN PRN 11/29/19 [History Last Taken Unknown] amitriptyline 10 mg tablet 10 mg PO DAILY 11/29/19 [History Last Taken Unknown] ascorbic acid (vitamin C) 1,000 mg tablet 1 g PO DAILY tab 11/29/19 [History Last Taken Unknown] cider zyyxeca-Gz-fkgupknsnwaappvp-tea 500 mg-100 mcg-300 mg-60 mg tab 1 tab PO BID 11/29/19 [History Last Taken Unknown] psyllium husk 0.52 gram capsule 1.04 g PO DAILY cap 11/29/19 [History Last Taken Unknown] thyroid (pork) 60 mg tablet 60 mg PO DAILY 11/29/19 [History Last Taken Unknown] cyanocobalamin (vitamin B-12) 1,000 mcg/mL oral drops 1 ml PO DAILY 07/09/20 [History Last Taken Unknown] furosemide 20 mg tablet 20 mg PO DAILY tab 07/09/20 [History Last Taken Unknown] meloxicam 15 mg PO DAILY 04/10/21 [History Last Taken Unknown] Allergy/AdvReac Type Severity Reaction Status Date / Time duloxetine HCl Allergy Rash Verified 07/09/20 12:26 [From Cylizalblu] Family History Aunt Breast cancer Mother Thyroid disorder Hypertension High cholesterol Father Hypertension Surgical History History of back surgery History of bilateral knee replacement History of hysterectomy History of laparoscopic cholecystectomy Social History Smoking Status: Never smoker alcohol intake: current alcohol intake frequency: holidays/special occasions only substance use type: does not use ROS ROS ED Constitutional Constitutional ED: Reports fever(s); Denies chills or sweats Eyes Eyes: Reports blurry vision and diplopia ENT ENT ED: Denies rhinorrhea or sore throat Cardiovascular Cardiovascular: Reports chest pain and racing heartbeat Respiratory/Chest Respiratory/Chest: Reports cough, dyspnea and dyspnea on exertion Gastrointestinal Gastrointestinal: Reports nausea; Denies abdominal pain, constipation, diarrhea or vomiting Genitourinary Genitourinary ED: Denies dysuria or hematuria Musculoskeletal Musculoskeletal: Denies arthralgias, back pain, myalgias or neck pain Integumentary Denies Abrasions or rash Neurologic Neurologic: Reports headache(s); Denies paresthesias EXAM Physical Exam Const Vital Signs: 04/09/21 19:43 04/09/21 23:08 04/09/21 23:21 Temperature 96.9 F L 99.0 F Temperature Source Temporal Oral Pulse Rate 91 91 81 Respiratory Rate 14 95 H 21 H Respiratory Effort Normal Short of Breath Respiratory Depth Shallow Respiratory Pattern Normal Blood Pressure 130/78 H 135/73 H 127/70 H Blood Pressure Mean 95 93 89 Pulse Ox 92 91 94 Oxygen Delivery Method Room Air Room Air Nasal Cannula Oxygen Flow Rate (L/min) 3 3 04/10/21 01:10 04/10/21 02:51 04/10/21 02:59 Temperature Temperature Source Pulse Rate 77 Respiratory Rate 26 H Respiratory Effort Respiratory Depth Respiratory Pattern Blood Pressure 122/72 H Blood Pressure Mean 88 Pulse Ox 93 86 91 Oxygen Delivery Method Nasal Cannula Room Air Nasal Cannula Oxygen Flow Rate (L/min) 3 3 Positive well nourished General Appearance ED: NAD; Negative for pallor HEENT Reports moist mucous membranes atraumatic Eyes PERRL and EOMs intact bilaterally General Eye ED: Negative for scleral icterus Neck no lymphadenopathy and supple Resp normal respiratory effort Resp Narrative: Rales noted in the right upper and lower lobe. Left lung appears to be clear. GI non-tender and non-distended Palpation: soft Extremity normal to inspection General Extremety ED: Negative for edema or tenderness General Extremity: Negative for edema Neuro oriented x3 and CN's II-XII intact bilaterally Sensorium / Orientation: alert and oriented to person Motor Exam: strength 5/5 throughout and general weakness Psych mental status grossly normal Thought Process: normal thought process Skin No no wounds General Skin Exam: Negative for jaundice or pallor Lesions: no lesions Rashes: no rashes MDM MDM MDM Narrative Medical decision making narrative: Patient presenting 1 day 11 of Covid symptoms. She is complaining of some generalized weakness, dyspnea with exertion, sharp retrosternal chest pain which is worse with deep inspiration. Fevers have resolved. Her EKG on my interpretation shows a normal sinus rhythm at 87 bpm without signs of ST elevation or depression. Chest x-ray on my interpretation shows patchy bilateral infiltrates consistent with COVID-19 and the radiologist does agree. CBC shows leukopenia and lymphopenia. Hemoglobin hematocrit are stable. Platelets are normal. CMP shows normal renal function and electrolytes. AST and ALT are slightly elevated. Lactic acid is negative. Procalcitonin is low. D-dimer is elevated. Patient had CTA of the chest which shows no PE or dissection however it does show bilateral pulmonary infiltrates consistent with COVID-19. Patient ambulated in the hallway and desatted to 86%. She was very symptomatic, lightheaded, short of breath. I feel she would benefit from inpatient treatment. Impression: 1. Hypoxia 2. History of COVID-19 pneumonitis 3. Generalized weakness 4. Chest pain Lab Data Attestation: I reviewed the patient's lab results. Labs: Laboratory Results - last 24 hr 04/09/21 04/09/21 04/09/21 23:25 23:25 23:25 WBC 3.8 L RBC 4.15 L Hgb 12.7 Hct 39.1 MCV 94.2 MCH 30.6 MCHC 32.5 RDW Std Deviation 42.7 RDW Coeff of [place] 12.3 Plt Count 153 MPV 9.9 Immature Gran % (Auto) 0.500 Neut % (Auto) 81.6 H Lymph % (Auto) 13.4 L [place] % (Auto) 4.5 Eos % (Auto) 0.0 Baso % (Auto) 0.0 Absolute Neuts (auto) 3.1 Absolute Lymphs (auto) 0.51 L Nucleated RBC % 0 Differential Comment SCANNED Diff Path Review May foll D-Dimer Quant (PE/DVT) 1.15 H* Sodium 135 L Potassium 4.2 Chloride 102 Carbon Dioxide 27.0 Anion Gap 6 BUN 11 Creatinine 0.58 Estim Creat Clear Calc 84.62 Est GFR (MDRD) Af Amer 134 Est GFR (MDRD) Non-Af 111 BUN/Creatinine Ratio 18.9 Glucose 93 Lactic Acid Calcium 8.1 L Total Bilirubin 0.30 AST 71 H ALT 66 H Alkaline Phosphatase 99 Troponin I High Sens 30 Total Protein 6.4 Albumin 2.5 L Globulin 3.9 Albumin/Globulin Ratio 0.6 L Procalcitonin 04/09/21 04/09/21 23:25 23:25 WBC RBC Hgb Hct MCV MCH MCHC RDW Std Deviation RDW Coeff of [place] Plt Count MPV Immature Gran % (Auto) Neut % (Auto) Lymph % (Auto) [place] % (Auto) Eos % (Auto) Baso % (Auto) Absolute Neuts (auto) Absolute Lymphs (auto) Nucleated RBC % Differential Comment Diff Path Review D-Dimer Quant (PE/DVT) Sodium Potassium Chloride Carbon Dioxide Anion Gap BUN Creatinine Estim Creat Clear Calc Est GFR (MDRD) Af Amer Est GFR (MDRD) Non-Af BUN/Creatinine Ratio Glucose Lactic Acid 0.7 Calcium Total Bilirubin AST ALT Alkaline Phosphatase Troponin I High Sens Total Protein Albumin Globulin Albumin/Globulin Ratio Procalcitonin 0.12 H Radiography Diagnostic Testing: Radiology Impression Chest X-Ray 04/09/21 22:05 IMPRESSION: Patchy airspace disease bilaterally suggesting COVID Electronically Signed: Javon Negro DO at 22:43 EDT Tel , Service support , Chest CTA 04/10/21 00:05 IMPRESSION: Normal CTA chest examination, without a demonstrated pulmonary embolism or arterial dissection. Bibasilar patchy airspace disease with early consolidation and small effusions. Likely infection such as COVID Electronically Signed: Javon Negro DO at 0:44 EDT Tel , Service support , Discharge Plan Triage Chief Complaint: Shortness of Breath ED Provider: Adam Brown Dx/Rx/DC Orders Prescriptions: No Action Probiotic 15 billion cell capsule, sprinkle 1 cap PO DAILY RF: 0 clobetasol 0.05 % ointment 1 applic TOPICAL DAILY RF: 0 turmeric 400 mg capsule 400 mg PO DAILY RF: 0 omega 8-uyn-nno-fish oil 1,600-500-800 mg/5 mL liquid 5 ml PO DAILY RF: 0 ascorbic acid (vitamin C) 1,000 mg tablet 1 g PO DAILY RF: 0 psyllium husk [Fiber Laxative (psyllium husk)] 0.52 gram capsule 1.04 g PO DAILY RF: 0 amitriptyline 10 mg tablet 10 mg PO DAILY RF: 0 cider sekquqj-Aq-ykiotrgnwmrnyfzo-tea 500 mg-100 mcg-300 mg-60 mg tab [id number] mm-riv-tw-mg tablet 1 tab PO BID RF: 0 albuterol sulfate 90 mcg/actuation HFA aerosol inhaler 1 - 2 puff INHALATION Q4H PRN PRN (Reason: Wheezing) RF: 0 furosemide 20 mg tablet 20 mg PO DAILY RF: 0 Vitamin B-12 1,000 mcg/mL drops 1 ml PO DAILY RF: 0 losartan 25 MG tablet 25 mg PO DAILY RF: 0 bupropion HCl 300 MG tablet extended release 24 hr 300 mg PO DAILY RF: 0 thyroid (pork) 60 mg tablet 60 mg PO DAILY RF: 0 meloxicam 15 mg tablet 15 mg PO DAILY RF: 0 Primary Care Provider: Wil Mar
[2021-04-09 23:08] VITALS: BP 135/73; PULSE 91; RESP 17; RESP 95; O2SAT 89; O2SAT 91
[2021-04-09 23:21] VITALS: BP 127/70; PULSE 81; RESP 21; TEMP 37.2; O2SAT 94
[2021-04-09 23:32] LABS: Absolute Lymphocyte Count 0.51 X10^3/uL (0.83-4.51); Absolute Neutrophil Count 3.1 X10^3/uL (2.0-7.7); Hematocrit 39.1 % (37-47); Hemoglobin 12.7 g/dL (12.0-15.0); Lymphocyte # 0.51 X10^3/ul (0.83-4.51); Lymphocyte % 13.4 % (19-41); Mean Corp Hgb Conc 32.5 g/dL (32-36); Mean Corpuscular Hgb 30.6 pg (27.0-32.0); Mean Corpuscular Volume 94.2 fL (81-99); Mean Platelet Vol. 9.9 fl (6.2-12.0); Monocyte# 0.17 X10^3/uL; Monocyte% 4.5 % (0-10); NRBC Flagged by Analyzer 0 % (0-5); Neutrophil # 3.12 X10^3/uL (2.7-7.7); Neutrophil % 81.6 % (47-70); POSITIVE DIFFERENTIAL YES; Platelet Count 153 K/mm3 (150-450); RBC Distribution Width CV 12.3 % (11.6-14.6); RBC Distribution Width SD 42.7 fl (35.1-43.9); Red Blood Count 4.15 M/mm3 (4.2-5.4); White Blood Count 3.8 K/mm3 (4.4-11.0)
[2021-04-09 23:43] LABS: Differential Indicated SCAN CRITERIA MET
[2021-04-09 23:50] LABS: D-Dimer Quantitative (DVT/PE) 1.15 FEU/ug/m (0.27-0.49)
[2021-04-09 23:52] LABS: ALB/GLOB Ratio 0.6 RATIO (0.9-2.4); AST(SGOT) 71 U/L (15-37); Alanine Aminotransfer ALT/SGPT 66 U/L (13-56); Albumin, Serum 2.5 g/dL (3.2-5.0); Alkaline Phosphatase 99 U/L (45-117); Anion Gap 6 (5-15); BUN 11 mg/dL (7-18); BUN/Creat Ratio 18.9 RATIO (10-20); Calcium,Total 8.1 mg/dL (8.5-10.1); Chloride 102 mmol/L (98-107); Creatinine, Serum 0.58 mg/dL (0.55-1.02); Differential Comment SCANNED; EST Glomerular Filtration Rate 111 mL/min (>60); Est Glom Filt Rate - Afr Amer 134 mL/min (>60); Estimated Creatinine Clearance 84.62 ml/min; Globulin 3.9 g/dL (2.2-4.2); Glucose 93 mg/dL (74-106); Potassium 4.2 mmol/L (3.5-5.1); Protein, Total 6.4 g/dL (6.4-8.2); Sodium Level 135 mmol/L (136-145); Troponin-I HS 30 pg/mL (3.0-54.0)
[2021-04-10] VITALS (13 sets, daily range): BP systolic 93–122; BP diastolic 57–72; PULSE 53–77; RESP 16–26; TEMP 36.3–37.2; O2SAT 86–98; BMI 22.4
[2021-04-10 00:02] LABS: Lactic Acid 0.7 mmol/L (0.4-1.9)
--- NOTE | 2021-04-10 00:05 | CT_ITS ---
STUDY: CTA CHEST REASON FOR EXAM: Female, 65 years old. chest pain/covid/elevated D-dimer RADIATION DOSAGE (If Supplied By Facility): CTDIvol = ( 10.49 ) mGy, DLP = ( 316.01 ) mGycm TECHNIQUE: The examination was performed with the intravenous administration of IV 75mL Isovue-370. Post-processing of the angiographic images was performed, with multiplanar reformation and 3D reconstruction. Individualized dose optimization techniques were used for this CT. COMPARISON: None. FINDINGS: Normal enhancement of the main pulmonary artery and right and left pulmonary arteries. Normal enhancement of the bilateral peripheral pulmonary arteries. There is no demonstrated pulmonary embolism. Normal thoracic aorta and visualized great vessels. There is no demonstrated aortic dissection. Normal heart and pericardium. Normal mediastinum. Normal hilar regions. Normal visualized trachea and bronchi. The lungs are well expanded. Patchy bibasilar airspace disease with early consolidation. Findings can BE seen with COVID. Some groundglass appearance. Trace bilateral effusions. Normal chest wall structures. Normal osseous structures. Normal visualized upper abdomen. CT/CTA Chest W/WO Contrast IMPRESSION: Normal CTA chest examination, without a demonstrated pulmonary embolism or arterial dissection. Bibasilar patchy airspace disease with early consolidation and small effusions. Likely infection such as COVID Electronically Signed: Javon Negro DO at 0:44 EDT Tel , Service support ,
[2021-04-10 00:15] LABS: Procalcitonin 0.12 ng/mL (0.00-0.09)
[2021-04-10] MEDS: Acetaminophen 500 MG Tablet 1000 MG PO (02:51)
--- NOTE | 2021-04-10 03:18 | HP.PCM.HOS_ITS ---
HPI - General General Date of Admission: 04/10/21 HPI Narrative RENÉ SHEEHAN, is a 65 F with a significant history of hypertension and hypothyroidism who presents to the emergency department with Covid-like symptoms. She reported on March 30, 2021 she and her went to a cabin in [place]. While there they (patient and ) felt sick. She reports shortness of breath; fevers; chills weakness; and feeling faint. She is unvaccinated for the COVID-19 virus. She returned back today was not area and got tested for COVID-19 virus on 04/07/2021. On 04/08/2021 at the test results came back and it was positive. At the emergent department patient was offered oxygen and to go home. However she stated that she felt so faint and wanted to stay at the hospital. Reportedly after ambulation her oxygen saturation dropped to the high 80s. [facility] Medical History Anxiety Anxiety and depression Chronic insomnia Chronic pain Depression Essential (primary) hypertension Fibromyalgia GERD (gastroesophageal reflux disease) Hyperlipidemia Hypothyroidism Hypothyroidism (acquired) Non-smoker Osteoarthritis Psoriatic arthritis Rheumatoid arthritis right breast/axilla pain RLS (restless legs syndrome) Home Medications bupropion HCl 300 mg PO DAILY 12/02/17 [History Last Taken 04/08/21 06:00] losartan 25 mg PO DAILY 12/02/17 [History Last Taken 04/08/21 06:00] clobetasol 0.05 % topical ointment 1 applic TOPICAL DAILY 11/21/19 [History Last Taken 04/08/21 06:00] lactobacillus combo no.11 15 billion cell sprinkle capsule 1 cap PO BID 11/21/19 [History Last Taken 04/09/21 21:00] omega 7-rsu-uta-fish oil 1,600 mg-500 mg-800 mg/5 mL oral liquid 5 ml PO DAILY 11/21/19 [History Last Taken 04/08/21 12:00] turmeric 400 mg capsule 400 mg PO DAILY cap 11/21/19 [History Last Taken 04/08/21 12:00] albuterol sulfate 90 mcg/actuation aerosol inhaler 1 - 2 puff INHALATION Q4H PRN PRN 11/29/19 [History Last Taken 04/09/21 12:00] amitriptyline 10 mg tablet 10 mg PO DAILY 11/29/19 [History Last Taken 04/08/21 18:00] ascorbic acid (vitamin C) 1,000 mg tablet 1 g PO DAILY tab 11/29/19 [History Last Taken 04/09/21 06:00] cider xmzykhb-Wu-axvbpvxsowufvvxn-tea 500 mg-100 mcg-300 mg-60 mg tab 1 tab PO BID 11/29/19 [History Last Taken 04/09/21 18:00] psyllium husk 0.52 gram capsule 1.04 g PO DAILY cap 11/29/19 [History Last Taken 04/08/21 12:00] thyroid (pork) 60 mg tablet 60 mg PO DAILY 11/29/19 [History Last Taken 04/09/21 06:00] cyanocobalamin (vitamin B-12) 1,000 mcg/mL oral drops 1 ml PO DAILY 07/09/20 [History Last Taken 04/09/21 06:00] furosemide 20 mg tablet 20 mg PO DAILY tab 07/09/20 [History Last Taken 04/08/21 06:00] meloxicam 15 mg PO DAILY 04/10/21 [History Last Taken 04/08/21 12:00] Allergy/AdvReac Type Severity Reaction Status Date / Time duloxetine HCl Allergy Rash Verified 07/09/20 12:26 [From Juvenal] Family History Aunt Breast cancer Mother Thyroid disorder Hypertension High cholesterol Father Hypertension Surgical History History of back surgery History of bilateral knee replacement History of cholecystectomy History of hysterectomy History of laparoscopic cholecystectomy Social History Smoking Status: Never smoker alcohol intake: current alcohol intake frequency: holidays/special occasions only substance use type: does not use ROS ROS Narrative Constitutional: Reports fatigue; chills and fever. Eyes: Denies blurry vision, change in eye color, change in vision, discharge from eye(s), double vision, erythema, eye pain, loss of vision or other HEENT: Denies abnormal hearing, dysphagia, ear pain, epistaxis, headache(s), hearing loss, nasal congestion, nasal discharge, post nasal drip, sinus p ressure, sore throat or other Cardiovascular: Denies chest pain. Denies orthopnea and paroxysmal nocturnal dyspnea Respiratory/Chest: Reports productive cough and shortness of breath. Gastrointestinal: Denies abdominal pain, coffee ground emesis, constipation, diarrhea, dyspepsia, hematemesis, hematochezia, loose stools, melena, nausea, vomiting or other Genitourinary: Denies burning urination, difficulty urinating, dysuria, hematuria, nocturia, urinary frequency, urinary hesitancy, urinary incontinence, urinary urgency or other Musculoskeletal: Denies arthralgias, back pain, joint pain, joint stiffness, joint swelling, neck pain or other Neurologic: Denies abnormal gait, abnormal speech, confusion, disequilibrium, dizziness, focal weakness, headache(s), numbness, paresthesias, seizure-like activity, seizures, syncope, tingling, tremor(s) or other Psychiatric: Denies anxiety, depression, homicidal ideation, suicidal ideation or other Endocrinology: Denies change in body appearance, cold intolerance, excessive sweating, heat intolerance, polydipsia, polyuria or other Hematologic/Lymphatic: Denies anemia, easy bleeding, easy bruising, lymphadenopathy or other Integumentary: Denies ulcer on buttocks. Allergic/Immunologic: Denies rhinitis, hives, eczema, asthma or other Vital Signs Vital Signs Vital Signs: 04/09/21 19:43 04/09/21 23:08 04/09/21 23:21 Temperature 96.9 F L 99.0 F Temperature Source Temporal Oral Pulse Rate 91 91 81 Respiratory Rate 14 95 H 21 H Respiratory Effort Normal Short of Breath Respiratory Depth Shallow Respiratory Pattern Normal Blood Pressure 130/78 H 135/73 H 127/70 H Blood Pressure Mean 95 93 89 Pulse Ox 92 91 94 Oxygen Delivery Method Room Air Room Air Nasal Cannula Oxygen Flow Rate (L/min) 3 3 04/10/21 01:10 04/10/21 02:51 04/10/21 02:59 Temperature Temperature Source Pulse Rate 77 Respiratory Rate 26 H Respiratory Effort Respiratory Depth Respiratory Pattern Blood Pressure 122/72 H Blood Pressure Mean 88 Pulse Ox 93 86 91 Oxygen Delivery Method Nasal Cannula Room Air Nasal Cannula Oxygen Flow Rate (L/min) 3 3 Weight Weight: 56.699 kg Body Mass Index (BMI) 21.4 Physical Exam Narrative Physical exam: General: Well-nourished, well-developed, no acute distress Head: Normocephalic, atraumatic, no tenderness Eyes: PERRLA, EOMI ENT, no trauma, moist mucous membranes, no rhinorrhea Neck: Nontender, full range of motion, no spinal tenderness, deformities, step- off CVS: Regular rate and rhythm Respiratory no acute distress, clear to auscultation bilaterally, chest wall nontender, no wheezing Abdomen: Soft, nontender, nondistended, normal bowel sounds, no masses : Deferred Back: Nontender, no CVA tenderness, no midline spinal tenderness, deformities, step-offs Extremities: Nontender full range of motion, no trauma Skin: Normal color, no trauma, abrasions Neuro: Alert, oriented, cranial nerves II through XII grossly intact. Psychiatry: Normal mood. Normal affect. Not depressed. Not anxious. Results Lab / Micro Data Result Diagrams: 04/09/21 23:25 04/09/21 23:25 Labs: Laboratory Results - last 24 hr 04/09/21 23:25: WBC 3.8 L, RBC 4.15 L, Hgb 12.7, Hct 39.1, MCV 94.2, MCH 30.6, MCHC 32.5, RDW Std Deviation 42.7, RDW Coeff of [place] 12.3, Plt Count 153, MPV 9.9, Immature Gran % (Auto) 0.500, Neut % (Auto) 81.6 H, Lymph % (Auto) 13.4 L, Millard % (Auto) 4.5, Eos % (Auto) 0.0, Baso % (Auto) 0.0, Absolute Neuts (auto) 3.1, Absolute Lymphs (auto) 0.51 L, Nucleated RBC % 0, Differential Comment SCANNED, Diff Path Review December foll 04/09/21 23:25: D-Dimer Quant (PE/DVT) 1.15 H* 04/09/21 23:25: Sodium 135 L, Potassium 4.2, Chloride 102, Carbon Dioxide 27.0, Anion Gap 6, BUN 11, Creatinine 0.58, Estim Creat Clear Calc 84.62, Est GFR (MDRD) Af Amer 134, Est GFR (MDRD) Non-Af 111, BUN/Creatinine Ratio 18.9, Glucose 93, Calcium 8.1 L, Total Bilirubin 0.30, AST 71 H, ALT 66 H, Alkaline Phosphatase 99, Troponin I High Sens 30, Total Protein 6.4, Albumin 2.5 L, Globulin 3.9, Albumin/Globulin Ratio 0.6 L 04/09/21 23:25: Lactic Acid 0.7 04/09/21 23:25: Procalcitonin 0.12 H Radiology Impression Chest X-Ray 04/09/21 22:05 IMPRESSION: Patchy airspace disease bilaterally suggesting COVID Electronically Signed: Javon ReyesDO adis at 22:43 EDT Tel , Service support , Chest CTA 04/10/21 00:05 IMPRESSION: Normal CTA chest examination, without a demonstrated pulmonary embolism or arterial dissection. Bibasilar patchy airspace disease with early consolidation and small effusions. Likely infection such as COVID Electronically Signed: Javon DO Sruthi at 0:44 EDT Tel , Service support , Assessment & Plan Assessment/Plan (1) COVID-19 virus infection: PLAN: Acute hypoxemic respiratory insufficiency secondary to SARS- COV 2 Reportedly her oxygen saturation was 86% on room air at the emergency department. Patient required 3-4 L of nasal cannula oxygen. Oxygen supplementation continued. Positive coronavirus test outpatient. D-dimer was mildly elevated at 1.15. Impression of chest CTA by radiology. Normal CTA chest examination, without a demonstrated pulmonary embolism or arterial dissection. Bibasilar patchy airspace disease with early consolidation and small effusions. Likely infection such as COVID. Actual chest CTA was independently interpreted and I agree with radiologist interpretation. Impression of chest x-ray by radiology: Patchy airspace disease bilaterally suggesting COVID. Actual chest x-ray image was independently interpreted. I agree with radiologist interpretation. Procalcitonin is not significantly elevated. Will start patient on Decadron. Patient is outside window for remdesivir. Tylenol for fever As needed albuterol ordered. Mucinex ordered. Hypertension Blood pressure is not within goal Losartan and Lasix continued. Trend blood pressure and adjust blood pressure medications. Hypothyroidism Home thyroid medication continue DVT prophylaxis Subcutaneous Lovenox per Covid protocol. Charges/Coding Visit Charges Inpatient E&M: 17907 Init Hosp L3
[2021-04-10] MEDS: guaiFENesin 1,200 MG Tablet 1200 MG PO (06:09)
--- NOTE | 2021-04-10 08:45 | NURSING ---
call placed to Dr. Brunner office requesting results of covid test be faxed to unit as Dr. Nielsen requested results on record.
[2021-04-10] MEDS: Ascorbic Acid 500 MG Tablet 1000 MG PO (09:33)
[2021-04-10] MEDS: dexAMETHasone 4 MG Tablet 6 MG PO (09:33)
[2021-04-10] MEDS: Omega-3 Acid Ethyl Esters 1 GM Capsule PO (09:33)
[2021-04-10] MEDS: Furosemide 20 MG Tablet PO (09:33)
[2021-04-10] MEDS: Meloxicam 15 MG Tablet PO (09:33)
[2021-04-10] MEDS: Thyroid 60 MG Tablet PO (09:33)
[2021-04-10] MEDS: buPROPion (XL) 300 MG TABLET.XL PO (09:33)
[2021-04-10] MEDS: Losartan Potassium 25 MG Tablet PO (09:33)
[2021-04-10] MEDS: Cyanocobalamin 500 MCG Tablet 1000 MCG PO (09:34)
[2021-04-10] MEDS: Enoxaparin 30 MG/0.3 ML Syringe SC (09:34)
--- NOTE | 2021-04-10 10:09 | PCM.DC ---
Discharge Instructions Diet Discharge Diet: No restrictions Activity Discharge Activity: Return to Normal Activity (slowly ease into normal routine.) Dressing / Incision Call your doctor if you observe: Fever of 101 or Higher and Shortness of breath (despite oxygen. Get a finger pulse oximeter (over the counter). If pulse ox reading less than 90% with oxygen notify psyician or return to ED. ) Follow Up Care Test Results: Test results from this visit will be discussed in further detail at your follow-up appointment, if applicable. Discharge Plan Admission Admit Date/Time: 04/10/21 03:12 Primary Reason for Your Visit: COVID-19 Attending Provider: Hang Nielsen Primary Care Provider: Wil Mar Instructions Patient Instructions: ED Chest Pain, Noncardiac Additional Instructions / Restrictions: Self isolate for at least 20 days since symptoms began (03/30-04/19/2021) AND at least one day (24 hours) have passed since resolution of fever without the use of fever-reducing agents AND improvement of symptoms (e.g., cough, shortness of breath) When around people in the same room, wear a face mask. Individuals also in the room should wear a mask. If possible, use a different bathroom and bedroom. Perform adequate hand hygiene. Avoid sharing dishes, glasses, etc. Family members with close contact with you and/or positive for COVID-19 should follow quarantine for 10 days. We do recommend Covid vaccination after you have completed quarantine. You will require oxygen continuously. 2 L/min at rest and 4 L/min with activity. Discharge Orders/Prescriptions Prescriptions: New dexamethasone 6 mg tablet 6 mg PO DAILY 9 Days Qty: 9 RF: 0 Continued Probiotic 15 billion cell capsule, sprinkle 1 cap PO BID RF: 0 clobetasol 0.05 % ointment 1 applic TOPICAL DAILY RF: 0 turmeric 400 mg capsule 400 mg PO DAILY RF: 0 omega 0-iau-zrp-fish oil 1,600-500-800 mg/5 mL liquid 5 ml PO DAILY RF: 0 ascorbic acid (vitamin C) 1,000 mg tablet 1 g PO DAILY RF: 0 psyllium husk [Fiber Laxative (psyllium husk)] 0.52 gram capsule 1.04 g PO DAILY RF: 0 amitriptyline 10 mg tablet 10 mg PO DAILY RF: 0 cider kcivdun-Ew-rgyxyweyghufxefb-tea 500 mg-100 mcg-300 mg-60 mg tab [id number] mp-xyh-lo-mg tablet 1 tab PO BID RF: 0 albuterol sulfate 90 mcg/actuation HFA aerosol inhaler 1 - 2 puff INHALATION Q4H PRN PRN (Reason: Wheezing) RF: 0 furosemide 20 mg tablet 20 mg PO DAILY RF: 0 Vitamin B-12 1,000 mcg/mL drops 1 ml PO DAILY RF: 0 losartan 25 MG tablet 25 mg PO DAILY RF: 0 bupropion HCl 300 MG tablet extended release 24 hr 300 mg PO DAILY RF: 0 thyroid (pork) 60 mg tablet 60 mg PO DAILY RF: 0 meloxicam 15 mg tablet 15 mg PO DAILY RF: 0 Referrals / Follow Up: Wil Mar DO [Primary Care Provider] - Within 2 Weeks Disposition Disposition (needs filled in before D/C Order can be placed): Home, Self Care
--- NOTE | 2021-04-10 10:18 | DS.PCM_ITS ---
Providers Date of Admission: 04/10/21 Primary Care Physician: Dr. Wil Mar, DO Reason For Visit: SARS COVID Diagnosis Discharge Diagnosis (1) COVID-19 virus infection: Status: Acute Code(s): U07.1 - COVID-19 Medications at Discharge Home Medications bupropion HCl 300 mg PO DAILY 12/02/17 losartan 25 mg PO DAILY 12/02/17 clobetasol 0.05 % topical ointment 1 applic TOPICAL DAILY 11/21/19 lactobacillus combo no.11 15 billion cell sprinkle capsule 1 cap PO BID 11/21/19 omega 6-hyk-nvw-fish oil 1,600 mg-500 mg-800 mg/5 mL oral liquid 5 ml PO DAILY 11/21/19 turmeric 400 mg capsule 400 mg PO DAILY cap 11/21/19 albuterol sulfate 90 mcg/actuation aerosol inhaler 1 - 2 puff INHALATION Q4H PRN PRN 11/29/19 amitriptyline 10 mg tablet 10 mg PO DAILY 11/29/19 ascorbic acid (vitamin C) 1,000 mg tablet 1 g PO DAILY tab 11/29/19 cider jmjzbix-Qv-jxgjxgstglqbailh-tea 500 mg-100 mcg-300 mg-60 mg tab 1 tab PO BID 11/29/19 psyllium husk 0.52 gram capsule 1.04 g PO DAILY cap 11/29/19 thyroid (pork) 60 mg tablet 60 mg PO DAILY 11/29/19 cyanocobalamin (vitamin B-12) 1,000 mcg/mL oral drops 1 ml PO DAILY 07/09/20 furosemide 20 mg tablet 20 mg PO DAILY tab 07/09/20 dexamethasone 6 mg PO DAILY 9 Days #9 tab 04/10/21 meloxicam 15 mg PO DAILY 04/10/21 Hospital Course Operations None Procedures None Summary of Care Provided Minutes Spent on Discharge: 32 Hospital Course: Is a 65-year-old female who has been sick since March 30. She has had progressive shortness of breath during this time and presented to the emergency room on . Patient tested positive for COVID-19 on April 07, 2021 through [facility] lab. Patient was out of the window for remdesivir and know she would qualify as severe COVID-19 pneumonia we do not have took Yelitza Mab at this institution. I told patient that she is stable and her medical cassidy atment is no different than what could be done at home. Patient was ambulated and she did require oxygen at 4L with activity and she was 92%. Still would require oxygen 2 L with rest 2. But informed the patient that it is unclear if she is going to get better or worse but her current medical therapy again is no different than what can be done at home so patient will be discharged with oxygen to continue. Patient given instructions that if she is getting worse of her pulse ox dropped down to less than 90% on oxygen to notify physician or come back into the emergency room as this could be a worsening of COVID-19. Patient and her both have contracted COVID-19. The patient is unvaccinated. Patient advised to get the COVID-19 vaccination after she has completed quarantine. I did personally reviewed the patient's CT images that showed bilateral patchy infiltrates primarily in the bases. This was a change previous CAT scan imaging worse those were not present. I did offer the patient the opportunity to visualize her CAT scan findings but she declined the opportunity to look at them. Physical Exam Resp normal respiratory effort and no retractions Resp Narrative: Bibasilar crackles. Weight / BMI Weight Weight: 59.7 kg Body Mass Index (BMI) 22.4 ABG / Lab / Microbiology Data Result Diagrams: 04/09/21 23:25 04/09/21 23:25 Laboratory: Laboratory Results - last 24 hr 04/09/21 23:25: WBC 3.8 L, RBC 4.15 L, Hgb 12.7, Hct 39.1, MCV 94.2, MCH 30.6, MCHC 32.5, RDW Std Deviation 42.7, RDW Coeff of [place] 12.3, Plt Count 153, MPV 9.9, Immature Gran % (Auto) 0.500, Neut % (Auto) 81.6 H, Lymph % (Auto) 13.4 L, [place] % (Auto) 4.5, Eos % (Auto) 0.0, Baso % (Auto) 0.0, Absolute Neuts (auto) 3.1, Absolute Lymphs (auto) 0.51 L, Nucleated RBC % 0, Differential Comment S CANNED, Diff Path Review December04/09/21 23:25: D-Dimer Quant (PE/DVT) 1.15 H* 04/09/21 23:25: Sodium 135 L, Potassium 4.2, Chloride 102, Carbon Dioxide 27.0, Anion Gap 6, BUN 11, Creatinine 0.58, Estim Creat Clear Calc 84.62, Est GFR (MDRD) Af Amer 134, Est GFR (MDRD) Non-Af 111, BUN/Creatinine Ratio 18.9, Glucose 93, Calcium 8.1 L, Total Bilirubin 0.30, AST 71 H, ALT 66 H, Alkaline Phosphatase 99, Troponin I High Sens 30, Total Protein 6.4, Albumin 2.5 L, Globulin 3.9, Albumin/Globulin Ratio 0.6 L 04/09/21 23:25: Lactic Acid 0.7 04/09/21 23:25: Procalcitonin 0.12 H Radiography Diagnostic Testing: Radiology Impression Chest X-Ray 04/09/21 22:05 IMPRESSION: Patchy airspace disease bilaterally suggesting COVID Electronically Signed: Javon Negro DO at 22:43 EDT Tel , Service support , Chest CTA 04/10/21 00:05 IMPRESSION: Normal CTA chest examination, without a demonstrated pulmonary embolism or arterial dissection. Bibasilar patchy airspace disease with early consolidation and small effusions. Likely infection such as COVID Electronically Signed: Javon Negro DO at 0:44 EDT Tel , Service support , D/C Instructions Discharge Diet: No restrictions Call your doctor if you observe: Fever of 101 or Higher and Shortness of breath (despite oxygen. Get a finger pulse oximeter (over the counter). If pulse ox reading less than 90% with oxygen notify psyician or return to ED. ) Meaningful Use Info Meaningful Use Diagnoses (Choose all that apply): None applicable Discharge Plan Admission Admit Date/Time: 04/10/21 03:12 Primary Reason for Your Visit: COVID-19 Attending Provider: Hang Nielsen Primary Care Provider: Wil Mar Instructions Patient Instructions: ED Chest Pain, Noncardiac Additional Instructions / Restrictions: Self isolate for at least 20 days since symptoms began (03/30-04/19/2021) AND at least one day (24 hours) have passed since resolution of fever without the use of fever-reducing agents AND improvement of symptoms (e.g., cough, shortness of breath) When around people in the same room, wear a face mask. Individuals also in the room should wear a mask. If possible, use a different bathroom and bedroom. Perform adequate hand hygiene. Avoid sharing dishes, glasses, etc. Family members with close contact with you and/or positive for COVID-19 should follow quarantine for 10 days. We do recommend Covid vaccination after you have completed quarantine. You will require oxygen continuously. 2 L/min at rest and 4 L/min with activity. Discharge Orders/Prescriptions Prescriptions: New dexamethasone 6 mg tablet 6 mg PO DAILY 9 Days Qty: 9 RF: 0 Continued Probiotic 15 billion cell capsule, sprinkle 1 cap PO BID RF: 0 clobetasol 0.05 % ointment 1 applic TOPICAL DAILY RF: 0 turmeric 400 mg capsule 400 mg PO DAILY RF: 0 omega 7-zen-npi-fish oil 1,600-500-800 mg/5 mL liquid 5 ml PO DAILY RF: 0 ascorbic acid (vitamin C) 1,000 mg tablet 1 g PO DAILY RF: 0 psyllium husk [Fiber Laxative (psyllium husk)] 0.52 gram capsule 1.04 g PO DAILY RF: 0 amitriptyline 10 mg tablet 10 mg PO DAILY RF: 0 cider afnefhg-Hv-ocfqyarmyetdfccu-tea 500 mg-100 mcg-300 mg-60 mg tab [phone] dl-krk-sb-mg tablet 1 tab PO BID RF: 0 albuterol sulfate 90 mcg/actuation HFA aerosol inhaler 1 - 2 puff INHALATION Q4H PRN PRN (Reason: Wheezing) RF: 0 furosemide 20 mg tablet 20 mg PO DAILY RF: 0 Vitamin B-12 1,000 mcg/mL drops 1 ml PO DAILY RF: 0 losartan 25 MG tablet 25 mg PO DAILY RF: 0 bupropion HCl 300 MG tablet extended release 24 hr 300 mg PO DAILY RF: 0 thyroid (pork) 60 mg tablet 60 mg PO DAILY RF: 0 meloxicam 15 mg tablet 15 mg PO DAILY RF: 0 Referrals / Follow Up: Wil Mar DO [Primary Care Provider] - Within 2 Weeks Disposition Disposition (needs filled in before D/C Order can be placed): Home, Self Care Charges/Coding Visit Charges Inpatient E&M: 11281 Disch Hosp
--- NOTE | 2021-04-10 11:45 | CASEMGMT ---
DIVINE MADDEN Assessment: Face to Face with pt for initial transition planning/care coordination assessment. DIVINE MADDEN introduced self and role at [facility], pt voices understanding and consents to assessment. Pt is A/O x4 and answers all questions appropriately at this time. Pt lying in bed with O2 on in no distress. Care providers, pharmacy, and demographics verified/updated. Admitting Dx: SARS COVID PCP: Zaid Specialists: Medardo, cardio; food safety specialist in [place]- pt cannot remember the name [facility]erred Pharmacy: [facility] Insurance: [employer] Prescription Benefit: yes LW/HPOA: Pt states she has a LW/DPOA and is aware it is not on file at [facility]. She is aware that she may bring it in to be scanned into her chart. She states her is her DPOA. LNOK: Caesar Benz, ; Fatuma Guillaume, dtr Living Arrangements: Pt lives with in a two story house with no steps to enter. Pt reports being I in ADL's and denies concerns at home. Transportation: Pt drives self and denies concerns with transportation. DME/HHC/SNF: Pt has canes and a walker at home but does not use. Pt denies any previous HHC or SNF stays. Patient was provided a list of HHC providers including quality and resource use data and consistent with the patient?s preferred geographic region, medical needs, and insurance network. The patient?s preferred provider is [facility]. Pt qualified for home O2, referral sent to [facility]. Discussed with pt that she needs to call [facility] when she arrives home for the O2 concentrator to be delivered. Pt states her is also positive for covid. She states she has family who can bring them supplies and groceries. Pt is aware that she is to quarantine until 04/19. Pt was tested for COVID at [facility] urgent care. Pt states no concerns with going home at time of dc. Pt states no further concerns/needs. CM to follow. Advised pt to ask CM if any further question/concerns/needs arise, voices understanding. Pt Goal: Home Plan: Home
[2021-04-10 11:51] LABS: Pathologist Review Reviewed
--- NOTE | 2021-04-10 14:20 | PHA.DC.MR ---
Pharmacy Service has performed discharge medication reconciliation for this patient. Due to COVID isolation, did not enter the room. Attempted to call patient room to tele-clinical counselor without success. Medication list reviewed at this time. Home Medications bupropion HCl 300 mg PO DAILY 12/02/17 losartan 25 mg PO DAILY 12/02/17 clobetasol 0.05 % topical ointment 1 applic TOPICAL DAILY 11/21/19 lactobacillus combo no.11 15 billion cell sprinkle capsule 1 cap PO BID 11/21/19 omega 3-vtq-cze-fish oil 1,600 mg-500 mg-800 mg/5 mL oral liquid 5 ml PO DAILY 11/21/19 turmeric 400 mg capsule 400 mg PO DAILY cap 11/21/19 albuterol sulfate 90 mcg/actuation aerosol inhaler 1 - 2 puff INHALATION Q4H PRN PRN 11/29/19 amitriptyline 10 mg tablet 10 mg PO DAILY 11/29/19 ascorbic acid (vitamin C) 1,000 mg tablet 1 g PO DAILY tab 11/29/19 cider exdskld-Dy-kbeswqfwhusbztxk-tea 500 mg-100 mcg-300 mg-60 mg tab 1 tab PO BID 11/29/19 psyllium husk 0.52 gram capsule 1.04 g PO DAILY cap 11/29/19 thyroid (pork) 60 mg tablet 60 mg PO DAILY 11/29/19 cyanocobalamin (vitamin B-12) 1,000 mcg/mL oral drops 1 ml PO DAILY 07/09/20 furosemide 20 mg tablet 20 mg PO DAILY tab 07/09/20 dexamethasone 6 mg PO DAILY 9 Days #9 tab 04/10/21 meloxicam 15 mg PO DAILY 04/10/21 The patient's discharge medication list was reviewed for discrepancies and discrepancies were resolved.
--- NOTE | 2021-04-11 16:37 | CASEMGMT ---
[facility] Follow Up Phone Call: TABITHA: Sury Strata:2 Call Date: 04/11/21 Discharge Date: 04/10/21 Time of Call:1630 Duration:3 min Admitting Dx:STARR HASKINS CM completed follow up phone call after recent hospitalization. Pt states she is doing well. States the oxygen is what she needed, her concentrator was delivered. She states she has her follow up appt was made for next Wednesday. Pt states she was not aware that she should be quarantining until 04/19/21. She states she thought it was for 10 days. Per dc instructions, quarantine until 04/19/21. Pt is aware and will quarantine. Reviewed quarantine measures as per dc instructions. Pt verbalizes understanding. Pt denies questions or concerns regarding medications.
== END 2021-04-10 16:35 | disposition home or self-care (01) | DRG 179 ==
LOC: ED 22:07 → MS3 04-10 04:05
PROVIDERS: Admitting Provider Hospitalist; Emergency Provider Student in an Organized Health Care Education/Training Program; PCP Student in an Organized Health Care Education/Training Program
DX: U07.1 COVID-19 (principal); R09.02 Hypoxemia; R06.89 Other abnormalities of breathing; E03.9 Hypothyroidism, unspecified; E78.00 Pure hypercholesterolemia, unspecified; E78.5 Hyperlipidemia, unspecified; F32.9 Major depressive disorder, single episode, unspecified; F41.9 Anxiety disorder, unspecified; G25.81 Restless legs syndrome; I10 Essential (primary) hypertension; K21.9 Gastro-esophageal reflux disease without esophagitis; L40.50 Arthropathic psoriasis, unspecified; M19.90 Unspecified osteoarthritis, unspecified site; M79.7 Fibromyalgia; Z79.899 Other long term (current) drug therapy
CPT/HCPCS: 71045; 71275; 80053; 83605; 84145; 84484; 85025; 85379; 87040; 93005; 94760; 99285; Q9967; A4216

== ENCOUNTER 2021-11-20 12:04 | Outpatient (CLI) | payer BC, SELFPAY ==
[2021-11-20 13:39] LABS: Absolute Lymphocyte Count 1.16 X10^3/uL (0.83-4.51); Absolute Neutrophil Count 3.5 X10^3/uL (2.0-7.7); Basophil# 0.04 X10^3/uL; Basophil% 0.8 % (0-1); Eosinophil# 0.09 X10^3/uL; Eosinophils% 1.7 % (0-5); Hematocrit 45.7 % (37-47); Lymphocyte # 1.16 X10^3/ul (0.83-4.51); Lymphocyte % 22.3 % (19-41); Mean Corp Hgb Conc 32.8 g/dL (32-36); Mean Corpuscular Hgb 31.2 pg (27.0-32.0); Mean Platelet Vol. 10.5 fl (6.2-12.0); Monocyte# 0.42 X10^3/uL; Monocyte% 8.1 % (0-10); NRBC Flagged by Analyzer 0 % (0-5); Neutrophil # 3.49 X10^3/uL (2.7-7.7); Neutrophil % 66.9 % (47-70); Platelet Count 178 K/mm3 (150-450); RBC Distribution Width CV 13.1 % (11.6-14.6); RBC Distribution Width SD 46.5 fl (35.1-43.9); Red Blood Count 4.81 M/mm3 (4.2-5.4); White Blood Count 5.2 K/mm3 (4.4-11.0)
[2021-11-20 14:08] LABS: Anion Gap 4 (5-15); BNP,B-Type NATRIURETIC PEPTIDE 18.6 pg/mL (0-100); BUN 21 mg/dL (7-18); Calcium,Total 9.3 mg/dL (8.5-10.1); Chloride 108 mmol/L (98-107); Creatinine, Serum 0.92 mg/dL (0.55-1.02); EST Glomerular Filtration Rate 66 mL/min (>60); Est Glom Filt Rate - Afr Amer 79 mL/min (>60); Glucose 80 mg/dL (74-106); Potassium 3.8 mmol/L (3.5-5.1); Sodium Level 142 mmol/L (136-145)
== END 2021-11-20 23:59 | disposition home or self-care (01) ==
LOC: LAB 12:06
PROVIDERS: PCP Student in an Organized Health Care Education/Training Program; Visit Provider Nurse Practitioner Gerontology
DX: R06.00 Dyspnea, unspecified (principal)
CPT/HCPCS: 36415; 80048; 83880; 85025

== ENCOUNTER 2021-12-10 23:20 | Observation (INO) | payer BC, SELFPAY ==
[2021-12-10 23:21] VITALS: BP 182/101; PULSE 73; RESP 19; TEMP 36.2; O2SAT 97; BMI 25.2
[2021-12-10 23:32] VITALS: BP 178/91
--- NOTE | 2021-12-10 23:34 | RAD_ITS ---
EXAM: XR CHEST, 1 VIEW CLINICAL INDICATION: chest pain TECHNIQUE: Frontal view of the chest. This report was created using [employer] report generation technology. COMPARISON: 04/09/2021 and 09/18/2019. FINDINGS: LUNGS AND PLEURAL SPACES: Unremarkable. No consolidation or edema. No pneumothorax. No effusion. HEART: Unremarkable. Cardiac silhouette not enlarged. MEDIASTINUM: Central airways and mediastinal contour are unremarkable. BONES/JOINTS: Unremarkable. SOFT TISSUES: Unremarkable. RAD/Chest 1 View (Portable) IMPRESSION: No radiographic evidence of acute cardiopulmonary disease. Electronically Signed: Alexis Blair MD at 0:03 EDT ,
--- NOTE | 2021-12-10 23:34 | EKG12_ITS ---
Test Reason : CP Blood Pressure : / mmHG Vent. Rate : 066 BPM Atrial Rate : 066 BPM P-R Int : 186 ms QRS Dur : 084 ms QT Int : 414 ms P-R-T Axes : 061 -05 005 degrees QTc Int : 434 ms Normal sinus rhythm Nonspecific ST abnormality Abnormal ECG Confirmed by ALONDRA ARORA, SIDDHARTHA ([id number]), online editor ANNA MARIE PHELPS ([id number]) on 12/11/2021 12:51:32 P M Referred By: ARVIND Confirmed By:TAI CANTU MD
--- NOTE | 2021-12-10 23:38 | EDS_ITS ---
HPI History of Present Illness Chief Complaint: Chest Pain Informant: patient Onset/Context/Timing Onset: Weeks Quality: Positive for Heaviness, Pressure and Tightness Location: Substernal Current Severity: Mild Maximum Severity: Moderate Narrative Narrative: Patient presents secondary to chest pain. She is been having intermittent chest pain for the past 3 weeks or so. She was seen by cardiology in late October and scheduled for a treadmill stress test on December 23. Patient presents to the ER tonight due to increasing frequency and duration of episodes. She complains of pressure and heaviness to the substernal area that does go through to her back. She does have some heaviness in her left arm. Pain is not necessarily associated with exertion. Patient states she is no longer on blood pressure medication but has been watching her blood pressures this past week. She has been getting systolic pressures in the 150s and 160s at home. [facility] Medical History (Updated 12/11/21 @ 00:[address] Jazmine Kelly MD) Anxiety and depression CAD (coronary artery disease) Chronic insomnia Chronic pain Chronic renal insufficiency Essential (primary) hypertension Fibromyalgia GERD (gastroesophageal reflux disease) History of stroke Hyperlipidemia Hypothyroidism (acquired) Non-smoker Osteoarthritis Psoriatic arthritis Rheumatoid arthritis right breast/axilla pain RLS (restless legs syndrome) Sleep apnea Home Medications clobetasol 0.05 % topical ointment 1 applic TOPICAL DAILY 11/21/19 [History Last Taken 04/08/21 06:00] albuterol sulfate 90 mcg/actuation aerosol inhaler 1 - 2 puff INHALATION Q4H PRN PRN 11/29/19 [History Last Taken 04/09/21 12:00] amitriptyline 10 mg tablet 10 mg PO DAILY 11/29/19 [History Last Taken 04/08/21 18:00] cyanocobalamin (vitamin B-12) 1,000 mcg/mL oral drops 1 ml PO DAILY 07/09/20 [History Last Taken 04/09/21 06:00] furosemide 20 mg tablet 20 mg PO DAILY tab 07/09/20 [History Last Taken 04/08/21 06:00] meloxicam 15 mg PO DAILY 04/10/21 [History Last Taken 04/08/21 12:00] ascorbic acid (vitamin C) 1,000 mg tablet 2 g PO BID tab 11/25/21 [History Last Taken Unknown] aspirin 81 mg tablet,delayed release 81 mg PO MOWEFR 11/25/21 [History Last Taken Unknown] bupropion HCl 300 mg 24 hr tablet, extended release 300 mg PO .COMPLEX 11/25/21 [History Last Taken Unknown] collagen 100 g PO DAILY 11/25/21 [History Last Taken Unknown] lactobacillus lfoxr-ttsjfm-timqnfwk protein 15 billion cell-170 mg cap 1 cap PO BID cap 11/25/21 [History Last Taken Unknown] omega 6-ung-dej-fish oil 1,600 mg-500 mg-800 mg/5 mL oral liquid 15 ml PO BID ml 11/25/21 [History Last Taken Unknown] thyroid (pork) 60 mg tablet 60 mg PO .COMPLEX 11/25/21 [History Last Taken Unknown] turmeric PO DAILY 11/25/21 [History Last Taken Unknown] vitamin d with k PO BID 11/25/21 [History Last Taken Unknown] zinc 10 mg tablet 20 mg PO BID tab 11/25/21 [History Last Taken Unknown] Allergy/AdvReac Type Severity Reaction Status Date / Time duloxetine HCl Allergy Rash Verified 12/10/21 23:24 [From Juvenal] Family History Aunt Breast cancer Mother Thyroid disorder Hypertension High cholesterol Father Hypertension Surgical History History of back surgery History of bilateral knee replacement History of cholecystectomy History of hysterectomy History of laparoscopic cholecystectomy Social History Smoking Status: Never smoker alcohol intake: current alcohol intake frequency: holidays/special occasions only substance use type: does not use ROS ROS ED Constitutional Constitutional ED: Denies chills or fever(s) Eyes Eyes: Denies change in vision ENT ENT ED: Denies sore throat Cardiovascular Cardiovascular: Reports chest pain Respiratory/Chest Respiratory/Chest: Reports dyspnea; Denies cough Gastrointestinal Gastrointestinal: Denies abdominal pain, diarrhea, nausea or vomiting Genitourinary Genitourinary ED: Denies dysuria Musculoskeletal Musculoskeletal: Reports back pain Integumentary Denies rash Neurologic Neurologic: Denies headache(s) or weakness Allergic/Immunologic Allergic/Immunologic ED: Denies urticaria EXAM Physical Exam Const Vital Signs: 12/10/21 23:21 12/10/21 23:25 12/10/21 23:32 Temperature 97.1 F L Temperature Source Temporal Pulse Rate 73 Respiratory Rate 19 H Respiratory Effort Normal Non-Labored Blood Pressure 182/101 H 178/91 H Blood Pressure Mean 128 120 Pulse Ox 97 Oxygen Delivery Method 12/10/21 23:42 12/10/21 23:48 12/11/21 00:01 Temperature Temperature Source Pulse Rate Respiratory Rate Respiratory Effort Blood Pressure 153/78 H 148/78 H Blood Pressure Mean 103 101 Pulse Ox 98 Oxygen Delivery Method Room Air Positive well nourished and well developed General Appearance ED: well developed HEENT normocephalic and atraumatic Eyes PERRL and EOMs intact bilaterally Neck supple Chest Wall inspection of chest normal and palpation of chest normal Resp normal respiratory effort Effort and Inspection: respiratory distress Cardio regular rate and regular rhythm GI normal to inspection, nondistended, normoactive bowel sounds, soft to palpation and non-tender Extremity normal to inspection Neuro oriented x3 Sensorium / Orientation: awake and alert Psych mental status grossly normal Skin no rashes or lesions noted Heart Score History: Moderately Suspicious ECG: Normal Age: >45 - <65 years Risk Factors: >/= 3 Risk Factors or History of CAD Troponin: </= Normal Limit Score: 4 MDM MDM MDM Narrative Medical decision making narrative: Patient did take 1 baby aspirin today. She is given 3 additional baby aspirin. Lab work, chest x-ray, EKG obtained. Lab Data Attestation: I reviewed the patient's lab results. Labs: Laboratory Results - last 24 hr 12/10/21 12/10/21 12/10/21 23:28 23:28 23:28 WBC 5.5 RBC 4.64 Hgb 14.7 Hct 43.1 MCV 92.9 MCH 31.7 MCHC 34.1 RDW Std Deviation 43.8 RDW Coeff of [place] 12.8 Plt Count 167 MPV 10.1 Immature Gran % (Auto) 0.400 Neut % (Auto) 57.3 Lymph % (Auto) 29.3 [place] % (Auto) 10.1 H Eos % (Auto) 2.0 Baso % (Auto) 0.9 Absolute Neuts (auto) 3.2 Absolute Lymphs (auto) 1.62 Nucleated RBC % 0 D-Dimer Quant (PE/DVT) 0.58 H* Sodium 140 Potassium 3.0 L Chloride 105 Carbon Dioxide 29.0 Anion Gap 6 BUN 24 H Creatinine 0.96 Estim Creat Clear Calc 51.12 Est GFR (MDRD) Af Amer 75 Est GFR (MDRD) Non-Af 62 BUN/Creatinine Ratio 24.9 H Glucose 133 H Calcium 9.1 Troponin I High Sens 12/10/21 23:28 WBC RBC Hgb Hct MCV MCH MCHC RDW Std Deviation RDW Coeff of [place] Plt Count MPV Immature Gran % (Auto) Neut % (Auto) Lymph % (Auto) [place] % (Auto) Eos % (Auto) Baso % (Auto) Absolute Neuts (auto) Absolute Lymphs (auto) Nucleated RBC % D-Dimer Quant (PE/DVT) Sodium Potassium Chloride Carbon Dioxide Anion Gap BUN Creatinine Estim Creat Clear Calc Est GFR (MDRD) Af Amer Est GFR (MDRD) Non-Af BUN/Creatinine Ratio Glucose Calcium Troponin I High Sens 6 Radiography Chest X-Ray - ED: 1 View, Read by ED Physician and Chronic Changes Diagnostic Testing: Clinical Impression(s) from Imaging Studies Chest X-Ray 12/10/21 23:34 IMPRESSION: No radiographic evidence of acute cardiopulmonary disease. Electronically Signed: Alexis Blair MD at 0:03 EDT , EKG Initial EKG: Attestation: I personally reviewed and interpreted this EKG as follows: Interpretation: Sinus Rhythm (Sinus at 66 with no acute ischemia. N onspecific ST depression in V4 and V5. This appears unchanged when compared to prior study.) Treatment and Re-Evaluation Narrative: Repeat evaluation patient resting comfortably. Blood pressure initially elevated in the 180s systolic but in the low 150s on repeat evaluation. CBC and chemistry studies significant for potassium of 3.0. This was replaced orally. D-dimer is 0.58, normal when age-adjusted. Initial troponin is 6. Chest x-ray per my interpretation reveals no acute abnormalities. Radiologist interpretation is also reviewed. With patient having escalating symptoms including longer duration and more frequent episodes with a stress test already planned I will speak with hospitalist regarding observation overnight for cycling of enzymes. Discharge Plan Triage Chief Complaint: Chest Pain ED Provider: Jazmine Kelly Dx/Rx/DC Orders Clinical Impression: Chest pain Prescriptions: No Action clobetasol 0.05 % ointment 1 applic TOPICAL DAILY RF: 0 omega 4-zpl-bdy-fish oil 1,600-500-800 mg/5 mL liquid 15 ml PO BID RF: 0 amitriptyline 10 mg tablet 10 mg PO DAILY RF: 0 albuterol sulfate 90 mcg/actuation HFA aerosol inhaler 1 - 2 puff INHALATION Q4H PRN PRN (Reason: Wheezing) RF: 0 ascorbic acid (vitamin C) 1,000 mg tablet 2 g PO BID RF: 0 furosemide 20 mg tablet 20 mg PO DAILY RF: 0 Vitamin B-12 1,000 mcg/mL drops 1 ml PO DAILY RF: 0 thyroid (pork) [[place] Thyroid] 60 mg tablet 60 mg PO .COMPLEX RF: 0 bupropion HCl 300 mg tablet extended release 24 hr 300 mg PO .COMPLEX RF: 0 aspirin [Adult Aspirin Regimen] 81 mg tablet,delayed release (DR/EC) 81 mg PO MOWEFR RF: 0 zinc 10 mg tablet 20 mg PO BID RF: 0 Ultra Tonia Plus 15 billion cell-170 mg capsule 1 cap PO BID RF: 0 vitamin d with k liquid PO BID RF: 0 turmeric capsule PO DAILY RF: 0 collagen 1 sc PO DAILY RF: 0 meloxicam 15 mg tablet 15 mg PO DAILY RF: 0 Primary Care Provider: Wil Mar Referrals: Wil Mar DO [Primary Care Provider] - Disposition Disposition: Acute Care [facility]
[2021-12-10] MEDS: Aspirin 81 MG TAB.CHEW 243 MG PO (23:40)
[2021-12-10 23:42] VITALS: O2SAT 98
[2021-12-10 23:43] LABS: Absolute Lymphocyte Count 1.62 X10^3/uL (0.83-4.51); Absolute Neutrophil Count 3.2 X10^3/uL (2.0-7.7); Basophil# 0.05 X10^3/uL; Basophil% 0.9 % (0-1); Eosinophil# 0.11 X10^3/uL; Hematocrit 43.1 % (37-47); Hemoglobin 14.7 g/dL (12.0-15.0); Lymphocyte # 1.62 X10^3/ul (0.83-4.51); Lymphocyte % 29.3 % (19-41); Mean Corp Hgb Conc 34.1 g/dL (32-36); Mean Corpuscular Hgb 31.7 pg (27.0-32.0); Mean Corpuscular Volume 92.9 fL (81-99); Mean Platelet Vol. 10.1 fl (6.2-12.0); Monocyte# 0.56 X10^3/uL; Monocyte% 10.1 % (0-10); NRBC Flagged by Analyzer 0 % (0-5); Neutrophil # 3.17 X10^3/uL (2.7-7.7); Neutrophil % 57.3 % (47-70); Platelet Count 167 K/mm3 (150-450); RBC Distribution Width CV 12.8 % (11.6-14.6); RBC Distribution Width SD 43.8 fl (35.1-43.9); Red Blood Count 4.64 M/mm3 (4.2-5.4); White Blood Count 5.5 K/mm3 (4.4-11.0)
[2021-12-10 23:48] VITALS: BP 153/78
[2021-12-10 23:59] LABS: Anion Gap 6 (5-15); BUN 24 mg/dL (7-18); BUN/Creat Ratio 24.9 RATIO (10-20); Calcium,Total 9.1 mg/dL (8.5-10.1); Chloride 105 mmol/L (98-107); Creatinine, Serum 0.96 mg/dL (0.55-1.02); EST Glomerular Filtration Rate 62 mL/min (>60); Est Glom Filt Rate - Afr Amer 75 mL/min (>60); Estimated Creatinine Clearance 51.12 ml/min; Glucose 133 mg/dL (74-106); Sodium Level 140 mmol/L (136-145)
[2021-12-11] VITALS (10 sets, daily range): BP systolic 140–179; BP diastolic 78–105; PULSE 54–110; RESP 16–18; TEMP 36.2–36.8; O2SAT 92–99; BMI 24.8
[2021-12-11] MEDS: Potassium Chloride Oral Tablet 20 MEQ 40 MEQ PO (00:02)
[2021-12-11 00:05] LABS: D-Dimer Quantitative (DVT/PE) 0.58 FEU/ug/m (0.27-0.49)
[2021-12-11 00:18] LABS: Troponin-I HS (w/2H Reflex) 6 pg/mL (3.0-54.0)
--- NOTE | 2021-12-11 00:51 | PCM.HP.STD ---
Documented by User: ANTHONY Houser 12/11/21 01:09 HPI - General General Date of Admission: 12/11/21 Date of Service: 12/11/21 Chief Complaint: Chest pain HPI Narrative RENÉ SHEEHAN, is a 65 F who presents with complaints of chest pain that has been intermittent but getting worse over time. Patient states that she is scheduled for a stress test on December 23 however the pain has gotten worse and so she presented to the ER. Patient states that she has a heaviness but also a pinching and stabbing sensation in her chest. Patient ranks pain 3-4 out of 10. Patient denies having any shortness of breath associated with episode but she states that she does have nausea, and back pain. Patient reports that she has had these episodes in the past and has had negative stress test in the past. Patient's medical history includes depression, arthritis, hypothyroidism. [facility] Medical History Anxiety and depression CAD (coronary artery disease) Chronic insomnia Chronic pain Chronic renal insufficiency Essential (primary) hypertension Fibromyalgia GERD (gastroesophageal reflux disease) History of stroke Hyperlipidemia Hypothyroidism (acquired) Non-smoker Osteoarthritis Psoriatic arthritis Rheumatoid arthritis right breast/axilla pain RLS (restless legs syndrome) Sleep apnea Home Medications clobetasol 0.05 % topical ointment 1 applic TOPICAL DAILY 11/21/19 [History Last Taken 04/08/21 06:00] albuterol sulfate 90 mcg/actuation aerosol inhaler 1 - 2 puff INHALATION Q4H PRN PRN 11/29/19 [History Last Taken 04/09/21 12:00] amitriptyline 10 mg tablet 10 mg PO DAILY 11/29/19 [History Last Taken 04/08/21 18:00] cyanocobalamin (vitamin B-12) 1,000 mcg/mL oral drops 1 ml PO DAILY 07/09/20 [History Last Taken 04/09/21 06:00] furosemide 20 mg tablet 20 mg PO DAILY tab 07/09/20 [History Last Taken 04/08/21 06:00] meloxicam 15 mg PO DAILY 04/10/21 [History Last Taken 04/08/21 12:00] ascorbic acid (vitamin C) 1,000 mg tablet 2 g PO BID tab 11/25/21 [History Last Taken Unknown] aspirin 81 mg tablet,delayed release 81 mg PO MOWEFR 11/25/21 [History Last Taken Unknown] bupropion HCl 300 mg 24 hr tablet, extended release 300 mg PO .COMPLEX 11/25/21 [History Last Taken Unknown] collagen 100 g PO DAILY 11/25/21 [History Last Taken Unknown] lactobacillus rzlft-hehljd-witdqibh protein 15 billion cell-170 mg cap 1 cap PO BID cap 11/25/21 [History Last Taken Unknown] omega 8-ocf-lzo-fish oil 1,600 mg-500 mg-800 mg/5 mL oral liquid 15 ml PO BID ml 11/25/21 [History Last Taken Unknown] thyroid (pork) 60 mg tablet 60 mg PO .COMPLEX 11/25/21 [History Last Taken Unknown] turmeric PO DAILY 11/25/21 [History Last Taken Unknown] vitamin d with k PO BID 11/25/21 [History Last Taken Unknown] zinc 10 mg tablet 20 mg PO BID tab 11/25/21 [History Last Taken Unknown] Allergy/AdvReac Type Severity Reaction Status Date / Time duloxetine HCl Allergy Rash Verified 12/10/21 23:24 [From Juvenal] Family History Aunt Breast cancer Mother Thyroid disorder Hypertension High cholesterol Father Hypertension Surgical History History of back surgery History of bilateral knee replacement History of cholecystectomy History of hysterectomy History of laparoscopic cholecystectomy Social History Smoking Status: Never smoker alcohol intake: current alcohol intake frequency: holidays/special occasions only substance use type: does not use ROS Constitutional Constitutional: Denies anorexia, chills, fatigue, malaise or weakness Cardiovascular Cardiovascular: Reports chest pain, dyspnea on exertion, leg edema and nausea Respiratory/Chest Respiratory/Chest: Denies cough or wheezing Gastrointestinal Gastrointestinal: Denies abdominal pain, constipation, diarrhea or vomiting Genitourinary Genitourinary: Denies dysuria Musculoskeletal Musculoskeletal: Denies back pain, extremity pain, joint pain, joint stiffness or joint swelling Integumentary Integumentary: Denies dry skin Neurologic Neurologic: Denies abnormal gait, abnormal speech, confusion, dizziness or focal weakness Psychiatric Psychiatric: Denies anxiety or depression Endocrine Endocrinology: Denies change in body appearance Hematologic/Lymphatic Hematologic/Lymphatic: Denies anemia Vital Signs Vital Signs Vital Signs: 12/10/21 23:21 12/10/21 23:25 12/10/21 23:32 Temperature 97.1 F L Temperature Source Temporal Pulse Rate 73 Respiratory Rate 19 H Respiratory Effort Normal Non-Labored Blood Pressure 182/101 H 178/91 H Blood Pressure Mean 128 120 Pulse Ox 97 Oxygen Delivery Method 12/10/21 23:42 12/10/21 23:48 12/11/21 00:01 Temperature Temperature Source Pulse Rate Respiratory Rate Respiratory Effort Blood Pressure 153/78 H 148/78 H Blood Pressure Mean 103 101 Pulse Ox 98 Oxygen Delivery Method Room Air 12/11/21 00:46 Temperature 97.1 F L Temperature Source Temporal Pulse Rate 61 Respiratory Rate 17 Respiratory Effort Blood Pressure 148/78 H Blood Pressure Mean 101 Pulse Ox 99 Oxygen Delivery Method Room Air Weight Weight: 146 lb 13.246 oz Body Mass Index (BMI) 25.2 Physical Exam Const alert, oriented x3 and no apparent distress General Appearance: cooperative HEENT normocephalic and head/scalp atraumatic Eyes conjunctivae normal and no scleral icterus Neck no lymphadenopathy and supple General: trachea midline Resp normal respiratory effort, normal air movement and clear to auscultation bilaterally Cardio regular rate, regular rhythm, S1 normal heart sound, S2 normal heart sound and peripheral pulses 2+ throughout GI normal to inspection, nondistended, normoactive bowel sounds, soft to palpation and non-tender Extremity normal capillary refill and no clubbing, cyanosis or edema General Extremity: no tenderness to palpation of joints or extremities Skin General Skin Exam: no breakdown and turgor normal Lesions: no lesions Rashes: no rashes Neuro no focal motor deficits and no sensory deficits noted Motor Exam: Negative for general weakness Psych thought process normal, cooperative and affect normal Appearance: appropriate Results Lab / Micro Data Result Diagrams: 12/10/21 23:28 12/10/21 23:28 Labs: Laboratory Results - last 24 hr 12/10/21 23:28: WBC 5.5, RBC 4.64, Hgb 14.7, Hct 43.1, MCV 92.9, MCH 31.7, MCHC 34.1, RDW Std Deviation 43.8, RDW Coeff of [place] 12.8, Plt Count 167, MPV 10.1, Immature Gran % (Auto) 0.400, Neut % (Auto) 57.3, Lymph % (Auto) 29.3, [place] % (Auto) 10.1 H, Eos % (Auto) 2.0, Baso % (Auto) 0.9, Absolute Neuts (auto) 3.2, Absolute Lymphs (auto) 1.62, Nucleated RBC % 0 12/10/21 23:28: Sodium 140, Potassium 3.0 L, Chloride 105, Carbon Dioxide 29.0, Anion Gap 6, BUN 24 H, Creatinine 0.96, Estim Creat Clear Calc 51.12, Est GFR (MDRD) Af Amer 75, Est GFR (MDRD) Non-Af 62, BUN/Creatinine Ratio 24.9 H, Glucose 133 H, Calcium 9.1 12/10/21 23:28: D-Dimer Quant (PE/DVT) 0.58 H* 12/10/21 23:28: Troponin I High Sens 6 Radiology Impression Chest X-Ray 12/10/21 23:34 IMPRESSION: No radiographic evidence of acute cardiopulmonary disease. Electronically Signed: Alexis Blair MD at 0:03 EDT , Assessment & Plan Assessment/Plan (1) Chest pain: QUALIFIERS: Chest pain type: precordial pain Qualified Code(s): R07.2 - Precordial pain PLAN: 1. Chest pain -Admit to PCU for observation -Stress test in a.m. -Trend cardiac enzymes -Cardiac heart healthy diet, n.p.o. at midnight -CBC and BMP ordered for a.m. -Continue aspirin 2. Hypothyroidism -Continue [place] Thyroid depression and anxiety 3. Depression -Continue bupropion and amitriptyline 4. Osteoarthritis -Continue meloxicam DVT prophylaxis-not indicated This patient was seen by Loly Fang NP-C under the supervision of Dr. Miller. 29 minutes spent in clinical coordination of patient's plan of care. Documented by User: Dr. Fer Miller MD 12/11/21 01:50 HPI - General General Date of Admission: 12/11/21 [facility] Medical History Anxiety and depression CAD (coronary artery disease) Chronic insomnia Chronic pain Chronic renal insufficiency Essential (primary) hypertension Fibromyalgia GERD (gastroesophageal reflux disease) History of stroke Hyperlipidemia Hypothyroidism (acquired) Non-smoker Osteoarthritis Psoriatic arthritis Rheumatoid arthritis right breast/axilla pain RLS (restless legs syndrome) Sleep apnea Home Medications clobetasol 0.05 % topical ointment 1 applic TOPICAL DAILY 11/21/19 [History Last Taken 04/08/21 06:00] albuterol sulfate 90 mcg/actuation aerosol inhaler 1 - 2 puff INHALATION Q4H PRN PRN 11/29/19 [History Last Taken 04/09/21 12:00] amitriptyline 10 mg tablet 10 mg PO DAILY 11/29/19 [History Last Taken 04/08/21 18:00] cyanocobalamin (vitamin B-12) 1,000 mcg/mL oral drops 1 ml PO DAILY 07/09/20 [History Last Taken 04/09/21 06:00] furosemide 20 mg tablet 20 mg PO DAILY tab 07/09/20 [History Last Taken 04/08/21 06:00] meloxicam 15 mg PO DAILY 04/10/21 [History Last Taken 04/08/21 12:00] ascorbic acid (vitamin C) 1,000 mg tablet 2 g PO BID tab 11/25/21 [History Last Taken Unknown] aspirin 81 mg tablet,delayed release 81 mg PO MOWEFR 11/25/21 [History Last Taken Unknown] bupropion HCl 300 mg 24 hr tablet, extended release 300 mg PO .COMPLEX 11/25/21 [History Last Taken Unknown] collagen 100 g PO DAILY 11/25/21 [History Last Taken Unknown] lactobacillus zvkpi-cemirp-vnceaagc protein 15 billion cell-170 mg cap 1 cap PO BID cap 11/25/21 [History Last Taken Unknown] omega 9-lkx-igl-fish oil 1,600 mg-500 mg-800 mg/5 mL oral liquid 15 ml PO BID ml 11/25/21 [History Last Taken Unknown] thyroid (pork) 60 mg tablet 60 mg PO .COMPLEX 11/25/21 [History Last Taken Unknown] turmeric PO DAILY 11/25/21 [History Last Taken Unknown] vitamin d with k PO BID 11/25/21 [History Last Taken Unknown] zinc 10 mg tablet 20 mg PO BID tab 11/25/21 [History Last Taken Unknown] Allergy/AdvReac Type Severity Reaction Status Date / Time duloxetine HCl Allergy Rash Verified 12/10/21 23:24 [From Cymbalta] Family History Aunt Breast cancer Mother Thyroid disorder Hypertension High cholesterol Father Hypertension Surgical History History of back surgery History of bilateral knee replacement History of cholecystectomy History of hysterectomy History of laparoscopic cholecystectomy Social History Smoking Status: Never smoker alcohol intake: current alcohol intake frequency: holidays/special occasions only substance use type: does not use Results Lab / Micro Data Result Diagrams: 12/10/21 23:28 12/10/21 23:28 Charges/Coding Addendum Addendum: Dr. Miller: I personally reviewed the chart and examined the patient, and agree with the above findings. 65-year-old female with no previous history of coronary artery disease presents to the hospital with chest pain. Is been ongoing for about 3 weeks but has recently gotten worse. She has had 2 previous stress test both of which were negative in 2018 and then again in 2019. Initial troponin was 6 and an EKG was unremarkable. We will obtain serial troponins and plan for stress test in the morning as her policy officer had planned for 1 on December 23. In discussing her symptomatology, there does appear to be a significant component of anxiety which the agrees with. I did discuss with her that if her stress test is unremarkable, that she may benefit from seeing a therapist. Of note she was recently being weaned off of her Wellbutrin and that process started about 3 weeks ago which is the same time as the chest pain. Clinical time spent in all aspects of patient care: 30 minutes Visit Charges OBSV E&M: 40090 Initial observation care L2
[2021-12-11 01:46] LABS: Reflex Troponin-HS? (from REC) Y
--- NOTE | 2021-12-11 02:00 | EKG12_ITS ---
Test Reason : CP ADMIT Blood Pressure : / mmHG Vent. Rate : 052 BPM Atrial Rate : 052 BPM P-R Int : 200 ms QRS Dur : 090 ms QT Int : 460 ms P-R-T Axes : 049 -12 -06 degrees QTc Int : 427 ms Sinus bradycardia Otherwise normal ECG When compared with ECG of 09-APR-2021 23:10, Vent. rate has decreased BY 35 BPM Confirmed by ALONDRA ARORA, SIDDHARTHA ([id number]), editor & co founder ANNA MARIE PHELPS ([id number]) on 12/11/2021 12:54:24 P M Referred By: DR RAWLS Confirmed By:TAI CANTU MD
[2021-12-11 02:19] LABS: Troponin-I HS 9 pg/mL (3.0-54.0)
[2021-12-11 06:10] LABS: Absolute Lymphocyte Count 1.44 X10^3/uL (0.83-4.51); Basophil# 0.05 X10^3/uL; Basophil% 1.3 % (0-1); Eosinophils% 2.5 % (0-5); Hematocrit 42.1 % (37-47); Hemoglobin 13.9 g/dL (12.0-15.0); Lymphocyte # 1.44 X10^3/ul (0.83-4.51); Lymphocyte % 36.1 % (19-41); Mean Corpuscular Hgb 30.8 pg (27.0-32.0); Mean Corpuscular Volume 93.1 fL (81-99); Mean Platelet Vol. 10.2 fl (6.2-12.0); Monocyte# 0.43 X10^3/uL; Monocyte% 10.8 % (0-10); NRBC Flagged by Analyzer 0 % (0-5); Neutrophil # 1.97 X10^3/uL (2.7-7.7); Neutrophil % 49.3 % (47-70); Platelet Count 171 K/mm3 (150-450); RBC Distribution Width SD 44.5 fl (35.1-43.9); Red Blood Count 4.52 M/mm3 (4.2-5.4)
[2021-12-11 06:38] LABS: Anion Gap 5 (5-15); BUN 19 mg/dL (7-18); BUN/Creat Ratio 22.5 RATIO (10-20); Calcium,Total 8.5 mg/dL (8.5-10.1); Chloride 109 mmol/L (98-107); Creatinine, Serum 0.85 mg/dL (0.55-1.02); EST Glomerular Filtration Rate 72 mL/min (>60); Est Glom Filt Rate - Afr Amer 87 mL/min (>60); Estimated Creatinine Clearance 57.74 ml/min; Glucose 91 mg/dL (74-106); Potassium 3.8 mmol/L (3.5-5.1); Sodium Level 143 mmol/L (136-145); Troponin-I HS 8 pg/mL (3.0-54.0)
[2021-12-11] MEDS: Thyroid 60 MG Tablet PO (10:19)
[2021-12-11] MEDS: Furosemide 20 MG Tablet PO (10:19)
[2021-12-11] MEDS: Meloxicam 15 MG Tablet PO (10:19)
--- NOTE | 2021-12-11 11:01 | STRESSREP_ITS ---
Stress Test Report Date: 12/11/2021 Procedure: Exercise tolerance test/imaging study Indications: Chest pain Consent: Per the patient Procedure: The patient exercised on a Nikolai protocol for 10 minutes and 1 second achieving a peak heart rate of 142 bpm (91% predicted maximal heart rate) with a peak blood pressure 188/64 mmHg and a peak MET capacity of 13.4 METs. The baseline ECG demonstrated normal sinus rhythm. The peak exercise ECG demonstrated sinus tachycardia with about [address] depressions in the inferior and lateral leads. No significant ischemic changes. EKG during recovery revealed no significant ischemic changes [There were no cardiac dysrhythmias pretest, during exercise, or recovery]. The functional capacity was considered excellent for age. Patient had 2 out of 10 chest pain prior to exercise which did not get worse with exercise. The examination was discontinued secondary to achieving target heart rate. Impression: 1. Technically adequate (percent predicted maximal heart rate greater than 85%) exercise tolerance test 2. Stress test is negative for exercise-induced EKG changes of ischemia 3. The test test is negative for exercise-induced chest pain 4. Functional capacity is excellent for age 5. Nuclear images pending Myocardial perfusion imaging study: Technique: The patient was injected with 11.5 mCi of technetium 99m Cardiolite and subsequently rest SPECT Cardiolite nuclear imaging was obtained in the horizontal long, vertical long, and short axis views. The patient exercised on a Nikolai protocol. Please see above for details. The patient was injected with 33.3 mCi of technetium 99m Cardiolite and subsequently stress SPECT Cardiolite nuclear imaging was obtained in the horizontal long, vertical long, and short axis views. A gated Cardiolite study at peak stress was obtained. Interpretation: Rest and stress SPECT Cardiolite nuclear imaging status post realignment, normalization, and attenuation correction, demonstrates normal myocardial radioisotope uptake. The gated Cardiolite study demonstrates no significant regional wall motion abnormalities. The reported LVEF is greater than 70%. Impression: 1. There is no evidence of significant ischemia or infarction. 2. The gated Cardiolite study reports an LVEF of greater than 70%. This note was generated with Paper Hunteration software. It may contain incorrect words, spelling, and punctuation that were not noted in checking the note before signing.
--- NOTE | 2021-12-11 11:42 | PCM.DC ---
Discharge Instructions Diet Discharge Diet: No restrictions Activity Discharge Activity: Return to Normal Activity Dressing / Incision Call your doctor if you observe: Shortness of breath, Dizziness and Chest pain Follow Up Care Test Results: Test results from this visit will be discussed in further detail at your follow-up appointment, if applicable. Discharge Plan Admission Admit Date/Time: 12/11/21 00:36 Primary Reason for Your Visit: chest pain Attending Provider: Vini Cleveland Primary Care Provider: Wil Mar Discharge Orders/Prescriptions Prescriptions: Continued clobetasol 0.05 % ointment 1 applic TOPICAL DAILY RF: 0 omega 5-jsh-ycm-fish oil 1,600-500-800 mg/5 mL liquid 15 ml PO BID RF: 0 amitriptyline 10 mg tablet 10 mg PO DAILY RF: 0 albuterol sulfate 90 mcg/actuation HFA aerosol inhaler 1 - 2 puff INHALATION Q4H PRN PRN (Reason: Wheezing) RF: 0 ascorbic acid (vitamin C) 1,000 mg tablet 2 g PO BID RF: 0 furosemide 20 mg tablet 20 mg PO DAILY RF: 0 Vitamin B-12 1,000 mcg/mL drops 1 ml PO DAILY RF: 0 thyroid (pork) [[place] Thyroid] 60 mg tablet 60 mg PO .COMPLEX RF: 0 bupropion HCl 300 mg tablet extended release 24 hr 300 mg PO .COMPLEX RF: 0 aspirin [Adult Aspirin Regimen] 81 mg tablet,delayed release (DR/EC) 81 mg PO MOWEFR RF: 0 zinc 10 mg tablet 20 mg PO BID RF: 0 Ultra Tonia Plus 15 billion cell-170 mg capsule 1 cap PO BID RF: 0 vitamin d with k liquid PO BID RF: 0 turmeric capsule PO DAILY RF: 0 collagen 1 sc PO DAILY RF: 0 meloxicam 15 mg tablet 15 mg PO DAILY RF: 0 Referrals / Follow Up: Wil Mar DO [Primary Care Provider] - Within 1 Week Disposition Disposition (needs filled in before D/C Order can be placed): Home, Self Care
--- NOTE | 2021-12-11 12:22 | DS.PCM_ITS ---
Documented by User: Cori Zimmer NP, INVESTIGATIONS CHIEF-C 12/11/21 12:28 Providers Date of Admission: 12/11/21 Date of Discharge: 12/11/21 Primary Care Physician: Dr. Wil Mar DO Reason For Visit: CHEST PAIN Diagnosis Discharge Diagnosis (1) Chest pain: Status: Acute Code(s): R07.9 - Chest pain, unspecified Qualifiers: Chest pain type: precordial pain Qualified Code(s): R07.2 - Precordial pain Medications at Discharge Home Medications clobetasol 0.05 % topical ointment 1 applic TOPICAL DAILY 11/21/19 albuterol sulfate 90 mcg/actuation aerosol inhaler 1 - 2 puff INHALATION Q4H PRN PRN 11/29/19 amitriptyline 10 mg tablet 10 mg PO DAILY 11/29/19 cyanocobalamin (vitamin B-12) 1,000 mcg/mL oral drops 1 ml PO DAILY 07/09/20 furosemide 20 mg tablet 20 mg PO DAILY tab 07/09/20 meloxicam 15 mg PO DAILY 04/10/21 ascorbic acid (vitamin C) 1,000 mg tablet 2 g PO BID tab 11/25/21 aspirin 81 mg tablet,delayed release 81 mg PO MOWEFR 11/25/21 bupropion HCl 300 mg 24 hr tablet, extended release 300 mg PO .COMPLEX 11/25/21 collagen 100 g PO DAILY 11/25/21 lactobacillus vbdyv-rvnhny-iozfweet protein 15 billion cell-170 mg cap 1 cap PO BID cap 11/25/21 omega 7-wzq-cwi-fish oil 1,600 mg-500 mg-800 mg/5 mL oral liquid 15 ml PO BID ml 11/25/21 thyroid (pork) 60 mg tablet 60 mg PO .COMPLEX 11/25/21 turmeric PO DAILY 11/25/21 vitamin d with k PO BID 11/25/21 zinc 10 mg tablet 20 mg PO BID tab 11/25/21 Hospital Course Operations None Procedures Stress test Summary of Care Provided Hospital Course: Patient is a 65 year old female admitted 12/11/21 due to chest pain. Patient reports chest pain has been intermittent for 3 weeks. 1. Noncardiac chest pain-ACS ruled out. Troponin negative EKG without ST-T changes. Patient underwent stress test which was negative for ischemia. LVEF greater than 70%. Follow-up with PCP in 1 week. 2. Hypothyroidism-continue home thyroid medication. 3. Depression/Anxiety-on bupropion, amitriptyline. 4. Osteoarthritis-on meloxicam. 5. History of COVID-10 April 2021 with continued nighttime supplemental oxygen use-continue bedtime oxygen use and outpatient follow-up. Patient seen and examined prior to discharge. Physical assessment as noted be low. Patient is stable for discharge with follow up recommendations as noted above. This patient was seen by ANTHONY Ochoa under the supervision of Dr. Cleveland. Physical Exam Const alert, oriented x3 and no apparent distress Orientation / Consciousness: awake, oriented to person, oriented to place and oriented to time HEENT normocephalic and moist oral mucous membranes Eyes PERRL, EOMs intact bilaterally and conjunctivae normal Neck no lymphadenopathy Resp normal respiratory effort and clear to auscultation bilaterally Cardio regular rate, regular rhythm and no murmurs Peripheral Pulses: pulses 2+ throughout GI normal to inspection, nondistended, normoactive bowel sounds, non-tender and non-distended Extremity normal to inspection Skin no rashes or lesions noted Lesions: no lesions Rashes: no rashes Trauma: no lacerations or abrasions Neuro CN's II-XII intact bilaterally, no focal motor deficits, no sensory deficits noted and deep tendon reflexes 2+ bilaterally Psych mental status grossly normal and affect normal Weight / BMI Weight Weight: 144 lb 9.972 oz Body Mass Index (BMI) 24.8 ABG / Lab / Microbiology Data Result Diagrams: 12/11/21 05:20 12/11/21 05:20 Laboratory: Laboratory Results - last 24 hr 12/10/21 23:28: WBC 5.5, RBC 4.64, Hgb 14.7, Hct 43.1, MCV 92.9, MCH 31.7, MCHC 34.1, RDW Std Deviation 43.8, RDW Coeff of [place] 12.8, Plt Count 167, MPV 10.1, Immature Gran % (Auto) 0.400, Neut % (Auto) 57.3, Lymph % (Auto) 29.3, Coleman % (Auto) 10.1 H, Eos % (Auto) 2.0, Baso % (Auto) 0.9, Absolute Neuts (auto) 3.2, Absolute Lymphs (auto) 1.62, Nucleated RBC % 0 12/10/21 23:28: Sodium 140, Potassium 3.0 L, Chloride 105, Carbon Dioxide 29.0, Anion Gap 6, BUN 24 H, Creatinine 0.96, Estim Creat Clear Calc 51.12, Est GFR (MDRD) Af Amer 75, Est GFR (MDRD) Non-Af 62, BUN/Creatinine Ratio 24.9 H, Glucose 133 H, Calcium 9.1 12/10/21 23:28: D-Dimer Quant (PE/DVT) 0.58 H* 12/10/21 23:28: Troponin I High Sens 6 12/11/21 01:51: Troponin I High Sens 9 12/11/21 05:20: WBC 4.0 L, RBC 4.52, Hgb 13.9, Hct 42.1, MCV 93.1, MCH 30.8, MCHC 33.0, RDW Std Deviation 44.5 H, RDW Coeff of [place] 13.0, Plt Count 171, MPV 10.2, Immature Gran % (Auto) 0.000, Neut % (Auto) 49.3, Lymph % (Auto) 36.1, Coleman % (Auto) 10.8 H, Eos % (Auto) 2.5, Baso % (Auto) 1.3 H, Absolute Neuts (auto) 2.0, Absolute Lymphs (auto) 1.44, Nucleated RBC % 0 12/11/21 05:20: Sodium 143, Potassium 3.8, Chloride 109 H, Carbon Dioxide 29.0, Anion Gap 5, BUN 19 H, Creatinine 0.85, Estim Creat Clear Calc 57.74, Est GFR (MDRD) Af Amer 87, Est GFR (MDRD) Non-Af 72, BUN/Creatinine Ratio 22.5 H, Glucose 91, Calcium 8.5, Troponin I High Sens 8 Radiography Diagnostic Testing: Radiology Impression Chest X-Ray 12/10/21 23:34 IMPRESSION: No radiographic evidence of acute cardiopulmonary disease. Electronically Signed: Alexis Blair MD at 0:03 EDT , D/C Instructions Discharge Diet: No restrictions Call your doctor if you observe: Shortness of breath, Dizziness and Chest pain Meaningful Use Info Meaningful Use Diagnoses (Choose all that apply): None applicable Discharge Plan Admission Admit Date/Time: 12/11/21 00:36 Primary Reason for Your Visit: chest pain Attending Provider: Vini Cleveland Primary Care Provider: Wil Mar Discharge Orders/Prescriptions Prescriptions: Continued clobetasol 0.05 % ointment 1 applic TOPICAL DAILY RF: 0 omega 0-ovq-evv-fish oil 1,600-500-800 mg/5 mL liquid 15 ml PO BID RF: 0 amitriptyline 10 mg tablet 10 mg PO DAILY RF: 0 albuterol sulfate 90 mcg/actuation HFA aerosol inhaler 1 - 2 puff INHALATION Q4H PRN PRN (Reason: Wheezing) RF: 0 ascorbic acid (vitamin C) 1,000 mg tablet 2 g PO BID RF: 0 furosemide 20 mg tablet 20 mg PO DAILY RF: 0 Vitamin B-12 1,000 mcg/mL drops 1 ml PO DAILY RF: 0 thyroid (pork) [[place] Thyroid] 60 mg tablet 60 mg PO .COMPLEX RF: 0 bupropion HCl 300 mg tablet extended release 24 hr 300 mg PO .COMPLEX RF: 0 aspirin [Adult Aspirin Regimen] 81 mg tablet,delayed release (DR/EC) 81 mg PO MOWEFR RF: 0 zinc 10 mg tablet 20 mg PO BID RF: 0 Ultra Tonia Plus 15 billion cell-170 mg capsule 1 cap PO BID RF: 0 vitamin d with k liquid PO BID RF: 0 turmeric capsule PO DAILY RF: 0 collagen 1 sc PO DAILY RF: 0 meloxicam 15 mg tablet 15 mg PO DAILY RF: 0 Referrals / Follow Up: Wil Mar DO [Primary Care Provider] - Within 1 Week Disposition Disposition (needs filled in before D/C Order can be placed): Home, Self Care Documented by User: Dr. Vini Cleveland MD 12/11/21 13:26 Providers Date of Admission: 12/11/21 Reason For Visit: CHEST PAIN Medications at Discharge Home Medications clobetasol 0.05 % topical ointment 1 applic TOPICAL DAILY 11/21/19 albuterol sulfate 90 mcg/actuation aerosol inhaler 1 - 2 puff INHALATION Q4H PRN PRN 11/29/19 amitriptyline 10 mg tablet 10 mg PO DAILY 11/29/19 cyanocobalamin (vitamin B-12) 1,000 mcg/mL oral drops 1 ml PO DAILY 07/09/20 furosemide 20 mg tablet 20 mg PO DAILY tab 07/09/20 meloxicam 15 mg PO DAILY 04/10/21 ascorbic acid (vitamin C) 1,000 mg tablet 2 g PO BID tab 11/25/21 aspirin 81 mg tablet,delayed release 81 mg PO MOWEFR 11/25/21 bupropion HCl 300 mg 24 hr tablet, extended release 300 mg PO .COMPLEX 11/25/21 collagen 100 g PO DAILY 11/25/21 lactobacillus rotcb-yrfjpb-jrhzschn protein 15 billion cell-170 mg cap 1 cap PO BID cap 11/25/21 omega 9-fmt-bwx-fish oil 1,600 mg-500 mg-800 mg/5 mL oral liquid 15 ml PO BID ml 11/25/21 thyroid (pork) 60 mg tablet 60 mg PO .COMPLEX 11/25/21 turmeric PO DAILY 11/25/21 vitamin d with k PO BID 11/25/21 zinc 10 mg tablet 20 mg PO BID tab 11/25/21 Hospital Course Operations None Summary of Care Provided Minutes Spent on Discharge: 40 Hospital Course: This patient was seen in conjunction with DIXON Ochoa . I have independently interviewed and examined the patient and reviewed pertinent historical, laboratory, and other data. Please refer to ANTHOYN Ochoa note for details of this patient's presentation, findings, and recommendations. I have reviewed ANTHONY Ochoa note and concur with documented findings. In brief, patient is a 65-year-old female with past medical history single for generalized osteoarthritis hypertension dyslipidemia who presented with chest pain. Patient was placed on a monitored bed OK was ruled out with serial cardiac enzymes subsequently underwent nuclear stress test which was negative for stress-induced ischemia discharged him to follow-up with PCP Physical Examination: GENERAL: cooperative HEENT: Atraumatic; EYES; Anicteric, Normal Conjunctiva NECK; supple, normal thyroid, RESPIRATORY: Diminished to auscultation CARDIOVASCULAR: Regular S1 S2, GI: soft, normoactive bowel sounds, : No Renal angle tenderness; EXTREMITIES: No edema, no clubbing, MUSCULOSKELETAL: no muscle wasting NEURO: Awake; no lateralizing signs. SKIN: No Rash PSYCH; Flat affect Hospital course; as documented above Total time spent by myself and the advanced practice practitioner evaluating patient, reviewing labs, subsequent management decisions, discussion with patient as well as other providers 40 minutes ( 25 of which was spent by myself) ABG / Lab / Microbiology Data Result Diagrams: 12/11/21 05:20 12/11/21 05:20 Discharge Plan Admission Admit Date/Time: 12/11/21 00:36 Primary Reason for Your Visit: chest pain Attending Provider: Vini Cleveland Primary Care Provider: Wil Mar Discharge Orders/Prescriptions Prescriptions: Continued clobetasol 0.05 % ointment 1 applic TOPICAL DAILY RF: 0 omega 9-qlc-hmo-fish oil 1,600-500-800 mg/5 mL liquid 15 ml PO BID RF: 0 amitriptyline 10 mg tablet 10 mg PO DAILY RF: 0 albuterol sulfate 90 mcg/actuation HFA aerosol inhaler 1 - 2 puff INHALATION Q4H PRN PRN (Reason: Wheezing) RF: 0 ascorbic acid (vitamin C) 1,000 mg tablet 2 g PO BID RF: 0 furosemide 20 mg tablet 20 mg PO DAILY RF: 0 Vitamin B-12 1,000 mcg/mL drops 1 ml PO DAILY RF: 0 thyroid (pork) [[place] Thyroid] 60 mg tablet 60 mg PO .COMPLEX RF: 0 bupropion HCl 300 mg tablet extended release 24 hr 300 mg PO .COMPLEX RF: 0 aspirin [Adult Aspirin Regimen] 81 mg tablet,delayed release (DR/EC) 81 mg PO MOWEFR RF: 0 zinc 10 mg tablet 20 mg PO BID RF: 0 Ultra Tonia Plus 15 billion cell-170 mg capsule 1 cap PO BID RF: 0 vitamin d with k liquid PO BID RF: 0 turmeric capsule PO DAILY RF: 0 collagen 1 sc PO DAILY RF: 0 meloxicam 15 mg tablet 15 mg PO DAILY RF: 0 Referrals / Follow Up: Wil Mar DO [Primary Care Provider] - Within 1 Week Disposition Disposition (needs filled in before D/C Order can be placed): Home, Self Care Charges/Coding Visit Charges OBSV E&M: 67616 Observation care discharge Hospital Course Imaging Results Imaging Results: 12/11/21 05:55 Nuclear Stress Test - Treadmil [NM] AM (NON MEDS) Operations None
== END 2021-12-11 11:42 | disposition home or self-care (01) ==
LOC: ED 12-11 00:27 → PCU 12-11 00:45
PROVIDERS: Admitting Provider Family Medicine; Emergency Provider Emergency Medicine; PCP Student in an Organized Health Care Education/Training Program; Visit Provider Internal Medicine
DX: R07.2 Precordial pain (principal); M06.9 Rheumatoid arthritis, unspecified; I12.9 Hypertensive chronic kidney disease with stage 1 through stage 4 chronic kidney disease, or unspecified chronic kidney disease; F32.A Depression, unspecified; I25.10 Atherosclerotic heart disease of native coronary artery without angina pectoris; F41.9 Anxiety disorder, unspecified; M19.90 Unspecified osteoarthritis, unspecified site; E03.9 Hypothyroidism, unspecified; E78.5 Hyperlipidemia, unspecified; N18.9 Chronic kidney disease, unspecified; M79.7 Fibromyalgia; K21.9 Gastro-esophageal reflux disease without esophagitis; G47.30 Sleep apnea, unspecified; G25.81 Restless legs syndrome; G89.29 Other chronic pain; Z79.82 Long term (current) use of aspirin; Z79.890 Hormone replacement therapy; Z79.899 Other long term (current) drug therapy; Z86.16 Personal history of COVID-19
CPT/HCPCS: 36415; 71045; 78452; 80048; 84484; 85025; 85379; 93005; 93017; 99218; 99285; A9500; A4216; G0378

== ENCOUNTER → 2021-12-23 | Outpatient (CLI) | payer BC, SELFPAY ==
--- NOTE | 2021-12-23 10:58 | ECHOD_ITS ---
Version 2 Reason For Study: Dyspnea/SOB Procedure This was a 2D Doppler, Color Flow transthoracic echocardiogram. The study was technically difficult. Exam performed in department. Left Ventricle Normal LV size. Left ventricular systolic function is normal. The estimated ejection fraction is 60 %. Stage 1 diastolic dysfunction. No regional wall motion abnormalities noted. Right Ventricle Normal RV size. Atria Normal left atrium. Normal right atrium. Mitral Valve Normal mitral valve. Tricuspid Valve Normal tricuspid valve. Mild tricuspid valve insufficiency. Pulmonary artery systolic pressure is 24 mmHg. Aortic Valve Normal aortic valve. Pulmonic Valve Normal pulmonic valve. Great Vessels Normal aortic root. The pulmonary artery is normal size. Normal inferior vena cava. Pericardium/Pleural No pericardial effusion. MMode/2D Measurements & Calculations LVIDd: 4.0 cm IVSd: 0.99 cm LAV(MOD-bp): 38.6 ml LVIDs: 2.7 cm LVPWd: 0.90 cm LAV(MOD-bp) Indexed: 23.3 ml/m2 FS: 33.7 % LAV(MOD-sp2): 39.4 ml LAV(MOD-sp4): 30.8 ml LA A4 area: 12.9 cm2 RA A4 area: 9.7 cm2 Time Measurements MV dec time: 0.32 sec Doppler Measurements & Calculations MV E max terence: 52.5 cm/sec Lat Peak E' Terence: 10.3 cm/sec Med Peak E' Terence: 7.8 cm/sec MV A max terence: 84.6 cm/sec E/E' lat: 5.1 E/E' med: 6.7 MV E/A: 0.62 MV V2 max: 80.7 cm/sec MV P1/2t max terence: 56.5 cm/sec Ao V2 max: 113.1 cm/sec MV max P.6 mmHg MV P1/2t: 70.2 msec Ao max P.1 mmHg MV V2 mean: 35.5 cm/sec MV dec slope: 235.9 cm/sec2 MV mean P.62 mmHg MV V2 VTI: 23.4 cm MVA(P1/2t): 3.1 cm2 LV V1 max: 100.0 cm/sec PA V2 max: 86.1 cm/sec TR max terence: 224.6 cm/sec LV V1 max P.1 mmHg TR max P.2 mmHg ECHO/Echo Complete Interpretation Summary Normal LV size. Left ventricular systolic function is normal. The estimated ejection fraction is 60 %. No regional wall motion abnormalities noted. Pulmonary artery systolic pressure is 24 mmHg. Stage 1 diastolic dysfunction. Ordering Physician: Jonna Ruffin Referring Physician: Wil Mar Performed By: Jericho Santacruz RCS
== END | disposition home or self-care (01) ==
LOC: CVS 10:56
PROVIDERS: PCP Student in an Organized Health Care Education/Training Program; Referring Provider Nurse Practitioner Gerontology; Visit Provider Nurse Practitioner Gerontology
DX: R06.00 Dyspnea, unspecified (principal)
CPT/HCPCS: 93306

== ENCOUNTER → 2022-01-22 | Outpatient (CLI) | payer SELFPAY ==
--- NOTE | 2022-01-22 12:31 | CT_ITS ---
INDICATION: CP, coronary calcification, CT OVER READ ONLY EXAMINATION: CT CHEST WITHOUT CONTRAST - CT Chest W/O Contrast Injection TECHNIQUE: Helically acquired images were obtained of the chest. A radiation dose optimization technique was used for this scan. IV Contrast dosage and agent: Comparison is made with prior study dated 04/10/2021. COMPARISON: None. FINDINGS: LUNGS, PLEURA AND LARGE AIRWAYS: Mild scarring at the lung bases slightly more prominent at the right lung base. HEART AND PERICARDIUM: Heart size is normal. No pericardial effusion. CORONARY ARTERIES: Coronary artery calcification VESSELS: Thoracic aorta is not dilated. Scattered calcified atherosclerotic plaques. MEDIASTINUM AND IVONNE: No mediastinal or hilar adenopathy. Esophagus is unremarkable. No hiatal hernia. BONES: No suspicious lytic or blastic abnormality. CT/Limited Chest CT w/CCTA IMPRESSION: Coronary artery calcification. Electronically Signed: Marty Huerta MD at 14:43 EDT ,
[2022-01-22 12:50] VITALS: BP 149/67; PULSE 62; RESP 18; O2SAT 99; BMI 22.3
== END | disposition home or self-care (01) ==
PROVIDERS: PCP Student in an Organized Health Care Education/Training Program; Referring Provider Internal Medicine Cardiovascular Disease; Visit Provider Internal Medicine Cardiovascular Disease
DX: I25.10 Atherosclerotic heart disease of native coronary artery without angina pectoris (principal); R07.9 Chest pain, unspecified; R06.00 Dyspnea, unspecified; E78.5 Hyperlipidemia, unspecified; I10 Essential (primary) hypertension
CPT/HCPCS: 75571; 76380

== ENCOUNTER → 2022-04-16 | Outpatient (CLI) | payer BC, SELFPAY ==
[2022-04-16 13:06] LABS: Erythrocyte Sedimentation Rate 17 mm/hr (0-30)
[2022-04-16 13:09] LABS: CRP < 2.90 mg/L (0.0-3.0); LDH 189 U/L (84-246)
[2022-04-17 16:09] LABS: Endomysial Antibody IgA Negative (Negative)
[2022-04-23 05:07] LABS: Albumin 3.6 g/dL (2.9-4.4); Alpha-1-Globulins 0.2 g/dL (0.0-0.4); Alpha-2-Globulins 0.7 g/dL (0.4-1.0); Cytoplasmic Ab (C-ANCA) <1:20 titer (Neg:<1:20); Gamma Globulin 0.9 g/dL (0.4-1.8); Immunoglobulin A 281 mg/dL (87-352); Immunoglobulin G 807 mg/dL (586-1602); Immunoglobulin M 176 mg/dL (26-217); PROEL- TOTAL PROTEIN 6.5 g/dL (6.0-8.5)
[2022-04-23 08:44] LABS: Immunoglobulin E 5 IU/mL (6-495); Perinuclear Ab (P-ANCA) <1:20 titer (Neg:<1:20)
[2022-04-23 15:08] LABS: Alternaria alternata <0.10 kU/L (Class 0); Anti-Centromere B Ab <0.2 AI (0.0-0.9); Anti-Chromatin <0.2 AI (0.0-0.9); Anti-Jo <0.2 AI (0.0-0.9); Anti-Scleroderma-70 AB <0.2 AI (0.0-0.9); Aspergillus fumigatus <0.10 kU/L (Class 0); Bahia Grass <0.10 kU/L (Class 0); Beef <0.10 kU/L (Class 0); Bermuda Grass <0.10 kU/L (Class 0); Bluegrass, Kentucky <0.10 kU/L (Class 0); Cat Hair/Dander, Standard <0.10 kU/L (Class 0); Cedar, Mountain <0.10 kU/L (Class 0); Cladosporium herbarum <0.10 kU/L (Class 0); Cockroach, American <0.10 kU/L (Class 0); Corn <0.10 kU/L (Class 0); D farinae Mite <0.10 kU/L (Class 0); D pteronyssinus <0.10 kU/L (Class 0); Dog Epithelia <0.10 kU/L (Class 0); Egg, Whole <0.10 kU/L (Class 0); Elm, American White <0.10 kU/L (Class 0); Hazelnut Tree <0.10 kU/L (Class 0); Hickory, White <0.10 kU/L (Class 0); Johnson Grass <0.10 kU/L (Class 0); Maple/Box Elder <0.10 kU/L (Class 0); Milk (Cow) <0.10 kU/L (Class 0); Mucor racemosus <0.10 kU/L (Class 0); Mugwort <0.10 kU/L (Class 0); Mulberry, White <0.10 kU/L (Class 0); Nettle <0.10 kU/L (Class 0); Oak, White <0.10 kU/L (Class 0); Peanut <0.10 kU/L (Class 0); Penicillium chrysogen <0.10 kU/L (Class 0); Pigweed, Rough <0.10 kU/L (Class 0); Plantain, English <0.10 kU/L (Class 0); Pork <0.10 kU/L (Class 0); RNP Ab 0.7 AI (0.0-0.9); Ragweed, Short/Common <0.10 kU/L (Class 0); SJOGREN'S Anti-SS-A test < 0.2 AI (0.0-0.9); SJOGREN'S Anti-SS-B test < 0.2 AI (0.0-0.9); Sheep Sorrel(Dock) <0.10 kU/L (Class 0); Smith Ab <0.2 AI (0.0-0.9); Soybean <0.10 kU/L (Class 0); Stemphylium herbarum <0.10 kU/L (Class 0); Sweet Gum <0.10 kU/L (Class 0); Sycamore, American <0.10 kU/L (Class 0); Wheat <0.10 kU/L (Class 0)
[2022-04-23 17:16] LABS: Anti-dsDNA Ab <1 IU/mL (0-9); Chocolate <0.10 kU/L (Class 0)
[2022-04-26 09:58] LABS: Immunoglobulin A 285 mg/dL (87-352); t-Transglutaminase IgA <2 U/mL (0-3)
== END | disposition home or self-care (01) ==
LOC: LAB 11:26
PROVIDERS: PCP Student in an Organized Health Care Education/Training Program; Visit Provider Internal Medicine Gastroenterology
DX: R19.8 Other specified symptoms and signs involving the digestive system and abdomen (principal)
CPT/HCPCS: 36415; 82784; 82785; 83516; 83615; 84165; 85652; 86003; 86005; 86140; 86225; 86235; 86255; 86256; 86334

== ENCOUNTER → 2022-04-18 | Outpatient (CLI) | payer BC, SELFPAY ==
[2022-04-23 09:54] LABS: Pancreatic Elastase, Fecal 186 (>200)
[2022-04-23 09:56] LABS: Calprotectin, Stool <16 ug/g (0-120)
== END | disposition home or self-care (01) ==
LOC: LABSPEC 10:11
PROVIDERS: PCP Student in an Organized Health Care Education/Training Program; Referring Provider Internal Medicine Gastroenterology; Visit Provider Internal Medicine Gastroenterology
DX: K58.9 Irritable bowel syndrome, unspecified (principal); R19.8 Other specified symptoms and signs involving the digestive system and abdomen
CPT/HCPCS: 82653; 83630; 83993

== ENCOUNTER → 2022-04-20 | Outpatient (CLI) | payer BC, SELFPAY ==
--- NOTE | 2022-04-20 09:45 | RAD_ITS ---
STUDY: X-RAY - ABDOMEN/PELVIS REASON FOR EXAM: Female, 66 years old. Sitz day 3. TECHNIQUE: Single AP view of the abdomen / pelvis on 2 images. COMPARISON: None. FINDINGS: Normal visualized lung bases. There is an unremarkable bowel gas pattern. There is no demonstrated free abdominal air. Three Sitz markers projected over the descending and sigmoid segments of the colon. The visualized liver, spleen and kidneys are grossly normal in size and morphology. Phleboliths. Posterior fusion at L5-S2 with rotatory levoscoliosis. RAD/Abdomen Single View IMPRESSION: 3 Sitz markers projected over descending and sigmoid segments of the colon. No acute finding. Electronically Signed: Caesar Amaro, at 11:21 EDT ,
== END | disposition home or self-care (01) ==
LOC: RAD 09:33
PROVIDERS: PCP Student in an Organized Health Care Education/Training Program; Referring Provider Student in an Organized Health Care Education/Training Program; Visit Provider Student in an Organized Health Care Education/Training Program
DX: R19.8 Other specified symptoms and signs involving the digestive system and abdomen (principal)
CPT/HCPCS: 74018

== ENCOUNTER → 2022-04-22 | Outpatient (CLI) | payer BC, SELFPAY ==
--- NOTE | 2022-04-22 10:48 | RAD_ITS ---
STUDY: X-RAY - ABDOMEN/PELVIS REASON FOR EXAM: Female, 66 years old. sitz day 5 TECHNIQUE: 3 views COMPARISON: None. FINDINGS: Normal visualized lung bases. Moderate stool throughout the colon. There is no demonstrated free abdominal air. The visualized liver, spleen and kidneys are grossly normal in size and morphology. Normal soft tissue structures. Bilateral pedicle screw fusion L5-S1 with moderate levoscoliosis and degenerative disc disease. RAD/Abdomen Single View IMPRESSION: Fecal stasis. Degenerative levoscoliosis. Bilateral pedicle screw fusion L5-S1. Electronically Signed: Klaus Montejo MD, SERAFIN at 16:55 EDT ,
== END | disposition home or self-care (01) ==
LOC: RAD 10:47
PROVIDERS: PCP Student in an Organized Health Care Education/Training Program; Referring Provider Internal Medicine Gastroenterology; Visit Provider Internal Medicine Gastroenterology
DX: R19.8 Other specified symptoms and signs involving the digestive system and abdomen (principal)
CPT/HCPCS: 74018

== ENCOUNTER 2022-07-08 14:49 | Outpatient (CLI) | payer BC, SELFPAY | END 2022-07-08 23:59 | disposition home or self-care (01) | LOC: LAB 14:50 → LABSPEC 14:52 | PROVIDERS: PCP Student in an Organized Health Care Education/Training Program; Visit Provider Internal Medicine Gastroenterology | DX: R19.8 Other specified symptoms and signs involving the digestive system and abdomen (principal) | CPT/HCPCS: 87177; 87209; 87329 ==

== ENCOUNTER 2022-07-10 10:12 | Outpatient (CLI) | payer BC, SELFPAY | END 2022-07-10 23:59 | disposition home or self-care (01) | PROVIDERS: PCP Student in an Organized Health Care Education/Training Program; Visit Provider Internal Medicine Gastroenterology | DX: R19.8 Other specified symptoms and signs involving the digestive system and abdomen (principal) | CPT/HCPCS: 36415 ==

== ENCOUNTER 2023-02-04 05:25 | Day surgery (SDC) | payer OTHER, SELFPAY ==
[2023-02-04] VITALS (7 sets, daily range): BP systolic 110–132; BP diastolic 33–74; PULSE 51–70; RESP 14–18; TEMP 36.5–36.9; O2SAT 96–100; BMI 25.0
[2023-02-04] MEDS: Lactated Ringers 1,000 ML 15 ML IV (05:53)
--- NOTE | 2023-02-04 06:30 | COLBX_PTH ---
PATIENT: RENÉ SHEEHAN LOC: EN U#:[id number] AGE/SX: 67/F ROOM: RE02/04/[address]: Dr. Rishi Diehl DO : 1955 BED: DIS: 02/04/2023 SPEC #: [id number] RECD: 02/04/23 09:41 STATUS: STEPAN REHoang #: [id number] BLACK: 02/04/23 06:[address]: Rishi Diehl DEPT: SURGICAL PATHOLOGY RECD BY: Polly Adler ENTERED: 02/04/23 11:24 SP TYPE: COLON BX OT DR: Dr. Wil Mar DO Tissues: A - Ileum, NOS B - Sigmoid colon biopsy C - Rectum, NOS Procedures: Trichrome (control) Special Stain Group II Surgery Specimen Level IV HEADER OPERATION: Colonoscopy (MAC) with biopsies PRE-OP DIAGNOSIS: Exocrine pancreatic insufficiency, irritable bowel syndrome, constipation/diarrhea TISSUE SUBMITTED: A ? Terminal ileum biopsy, B ? Sigmoid colon biopsy, C ? Rectum biopsy MICROSCOPIC DIAGNOSIS A. Terminal ileum, biopsy: Fragments of small intestinal mucosa, no pathologic diagnosis. B. Sigmoid colon, biopsy: Fragments of colonic mucosa with minimal thickening of subepithelial collagen band suspicious for collagenous colitis. See comment. C. Rectum, biopsy: Fragments of colonic mucosa with mild increase of intraepithelial lymphocytes suspicious for microscopic (lymphocytic) colitis. See comment. SJ:rhea 02/05/2023 COMMENT B. Trichrome stain with matched control was used in the evaluation of the specimen. C. Trichrome stain with matched control was used in the evaluation of the specimen and does not show significant thickening of subepithelial collagen band. Correlation with clinical, endoscopic findings and appropriate follow-up are necessary. MICROSCOPIC DESCRIPTION Slides are reviewed. GROSS DESCRIPTION A - Received in fixative is one container labeled with the patient's name and designated terminal ileum biopsy. The specimen consists of two irregular fragments of light bravo soft tissue that in aggregate measure 0.6 x 0.4 x 0.1 cm. The specimen is totally submitted in one cassette. B - Received in fixative is one container labeled with the patient's name and designated sigmoid colon biopsy. The specimen consists of multiple irregular fragments of light bravo soft tissue that in aggregate measure 1.0 x 0.4 x 0.1 cm. The specimen is totally submitted in one cassette. C - Received in fixative is one container labeled with the patient's name and designated rectum biopsy. The specimen consists of two irregular fragments of light bravo soft tissue that in aggregate measure 0.4 x 0.2 x 0.1 cm. The specimen is totally submitted in one cassette. / SJ:rg 02/04/2023 TC:5 CPT: 47274 x3, 89401 x2
--- NOTE | 2023-02-04 06:37 | HP.PCM_ITS ---
History and Physical Date of Admission: 02/04/23 yolis presents to the office today for PMH DM; sleep apnea; renal insufficiency; stroke; psoriatic arthritis; fibromyalgia; hypothyroidism; hyperlipidemia; HTN; proctitis; prolapsed bladder. History of three pregnancies with vaginal births.? PSH total hysterectomy with rectocele repair. Prior workup Bloodwork 4.3.?Celiac profile, CRP WNL *BGI established 04.16.22 with referral from PCP for evaluation of urgent diarrhea with abd pain/cramping. Previously established with Dr. Wagner. Stools are urgent soft/pasty with episodes of incontinence which can occur for a day and the next day she will have hard rabbit pellets that will also be incontinent, constipation/pellets is the most difficult for her; infrequently she will have such hard stool she requires digital evacuation. Stool consistency changes by the day. Causes significant interruption of her life, leaving the house and social engagements.? Recently diagnosed with pelvic floor dysfunction and is seeing a specialist. ?Biochemical workup?ANCA, celiac, CRP, LDH, ESR, CLAUDIA comp, IgGAM, GLORIA, allergens zone 8, RAST IgE L5 Stool testing calprotectin, lactoferrin WNL. Ova/parasite and giardia not performed. Pancreatic elastase L186 Start pancreatic enzymes. ?Sitz markers 8.2021?with no retained rings seen. Fecal stasis noted. Contact 07.03.22 to report some nausea. Zofran ordered. Contact 07.07.22 to report diarrhea for the last 5-6 weeks with abdominal cramping and urgency causing incontinence. Recommend hyoscyamine and Lomotil. OV 07.10.22 with continued postprandial watery diarrhea, bloating and flatulence, fatigued, L flank discomfort that is improved with reduction of PO intake. Picked up her hyoscyamine and Lomotil last night. Hyoscyamine was helpful last night (first dose). ?Biochemical workup?IBD profile not suggestive of IBD. Stool?lactoferrin, Ova/parasites and giardia WNL. OV 11.16.22 Zenpep start has been very helpful, loose stools with urgency and abdominal pain has all much improved. Continues to have loose stools with urgency and bloating. Has been taking Zenpep at the end/or after she eats. Last colonoscopy 6-7 years previously and she does not believe there were any abnormalities. ROS Const Constitutional: No anorexia, fatigue, fever(s), weight change or sleep problems Eyes Eyes: No change in vision ENT ENT: No abnormal hearing, difficulty swallowing, mouth lesions, tongue swelling or throat swelling Resp Respiratory: No cough or shortness of breath Cardio Cardiology: No chest pain at rest, chest pain with exertion, shortness of breath or dyspnea on exertion Gastro GI: No difficulty swallowing Genitourinary-Female: No difficulty urinating or burning urination Musc Musculoskeletal: No joint pain, joint swelling, muscle weakness or decreased muscle mass Skin Skin: No hair loss in leg, yellowing of the eye, itchy eyes, rash, skin ulcer or skin swelling Neuro Neurology: No abnormal hearing, abnormal movements, confusion, unsteady gait/balance or memory loss Psych Psychiatric: No anxiety, No confusion and No memory loss Endo Endocrine: No fatigue or weight change Aller/Imm Allergy/Immunologic: No itchy eyes, throat swelling or tongue swelling Franco/Lymp Hematologic/Lymphatic: No easy bleeding, easy bruising or enlarged lymph nodes Exam Const General: cooperative and comfortable Nutritional Appearance: average body habitus and well nourished [facility] Head: normal to inspection Ears: hearing grossly normal bilaterally Nose: external nose normal Face and sinus: normal facial exam Mouth: oral mucosae normal Throat: posterior oropharynx normal Eyes General: appearance normal, both eyes and all related structures Neck Neck: normal visual inspection Chest Chest palpation & inspection: normal inspection of the chest and normal palpation of entire chest wall Resp Effort & Inspection: normal respiratory effort Auscultation: Bilateral: Clear to Auscultation Cardio Palpation: normal PMI Rate: regular rate Rhythm: regular rhythm GI Inspection: normal to inspection Auscultation: normal bowel sounds Percussion: normal to percussion Palpation: no hepatosplenomegaly Skin General: no rashes or lesions noted Neuro General: patient alert Extrem General: normal to inspection Psych Affect: normal affect Quality Reporting Tobacco Screening ([facility] 138) Smoking Status: Never smoker Assessment and Plan Assessment and Plan (1) Exocrine pancreatic insufficiency: ?Status:?Chronic ?Plan: From her stool studies that show that she has exocrine pancreatic insufficiency.? Therefore I suspect that when the pancreas contraction in this patient population it is not getting enough digestive enzymes into the lumen of the GI tract.? Therefore we will give her Zenpep to take 1 pill each meal she will follow-up in approximately 3 months. 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 She was on amitriptyline 10 mg a day.? I will increase to 25 mg at night.? She was cautioned on take any other medicines that may cause her to be sleepy to help her current bloating, abdominal pain and diarrhea. ? ? ? Medications: Discontinued [id number] 40,000-126,000- 168,000 unit (Zenpep) ?? take three capsules with a meal and one to two with snacks ?? Discontinued Reason:? Order Changed 1 cap? PO TID 720 caps 3RF ? ? amitriptyline ?? Discontinued Reason:? Order CompletedC 25 mg? PO QHS 15 tabs 0RF ? ? I have examined the patient and the H&P has been reviewed. There are no clinical changes since date of exam.
--- NOTE | 2023-02-04 07:10 | OP.COLON_ITS ---
Patient Name: Cinthya Benz Procedure Date: 02/04/2023 6:34 AM Date of : 1955 Age: 67 Procedure: Colonoscopy Indications: Screening for colorectal malignant neoplasm Providers: Rishi Diehl DO Medicines: Monitored Anesthesia Care Patient Profile: This is a 67 year old female. Refer to note in patient chart for documentation of history and physical. Last Colonoscopy: several years ago. Complications: No immediate complications. Procedure: Pre-Anesthesia Assessment: - Prior to the procedure, a History and Physical was performed, and patient medications and allergies were reviewed. The risks and benefits of the procedure and the sedation options and risks were discussed with the patient. All questions were answered and informed consent was obtained. Patient identification and proposed procedure were verified by the physician in the pre-procedure area. Mental Status Examination: alert and oriented. Airway Examination: normal oropharyngeal airway and neck mobility. Prophylactic Antibiotics: The patient does not require prophylactic antibiotics. Prior Anticoagulants: The patient has taken no previous anticoagulant or antiplatelet agents. After reviewing the risks and benefits, the patient was deemed in satisfactory condition to undergo the procedure. The anesthesia plan was to use monitored anesthesia care (MAC). Immediately prior to administration of medications, the patient was re-assessed for adequacy to receive sedatives. The heart rate, respiratory rate, oxygen saturations, blood pressure, adequacy of pulmonary ventilation, and response to care were monitored throughout the procedure. The physical status of the patient was re-assessed after the procedure. After I obtained informed consent, the scope was passed under direct vision. Throughout the procedure, the patient's blood pressure, pulse, and oxygen saturations were monitored continuously. The pediatric colonoscope was introduced through the anus and advanced to the terminal ileum. The colonoscopy was performed without difficulty. The patient tolerated the procedure well. The quality of the bowel preparation was good. Scope In: 6:42:03 AM Scope Withdrawal Time 0 hours 12 minutes 50 seconds Scope Out: 7:03:06 AM Total Procedure Duration Time 0 hours 21 minutes 3 seconds Findings: The perianal and digital rectal examinations were normal. Patchy mild inflammation characterized by friability was found in the rectum, in the recto-sigmoid colon and in the sigmoid colon. Biopsies were taken with a cold forceps for histology. Verification of patient identification for the specimen was done. Estimated blood loss was minimal. A patchy area of the terminal ileum was congested. Biopsies were taken with a cold forceps for histology. Verification of patient identification for the specimen was done. Estimated blood loss was minimal. Impression: - Patchy mild inflammation was found in the rectum, in the recto-sigmoid colon and in the sigmoid colon secondary to colitis. Biopsied. - Congested mucosa in the terminal ileum. Biopsied. Recommendation: - Discharge patient to home. - Resume previous diet. - Continue present medications. - Await pathology results. - Repeat colonoscopy in 5 years for surveillance based on pathology results. Procedure Code(s): --- Professional --- 93396, Colonoscopy, flexible; with biopsy, single or multiple CPT copyright 2017 [employer]. All rights reserved. The codes documented in this report are preliminary and upon hub bander review may be revised to meet current compliance requirements. Rishi Diehl DO 02/04/2023 7:09:48 AM This report has been signed electronically. Number of Addenda: 0 Note Initiated On: 02/04/2023 6:34 AM
--- NOTE | 2023-02-04 07:11 | OP.CCLET_ITS ---
02/04/2023 [address] [place] [address] Re : Colonoscopy procedure for Cinthya Benz Dear Dr. Mar This procedure was performed on January. My impressions and recommendations are as follows: Impressions : - Patchy mild inflammation was found in the rectum, in the recto-sigmoid colon and in the sigmoid colon secondary to colitis. Biopsied. - Congested mucosa in the terminal ileum. Biopsied. Recommendations : - Discharge patient to home. - Resume previous diet. - Continue present medications. - Await pathology results. - Repeat colonoscopy in 5 years for surveillance based on pathology results. My findings are described in the full procedure note, which is enclosed. If I can be of further assistance, please feel free to contact me at . Sincerely, Rishi Diehl, 02/04/2023 7:09:48 AM This report has been signed electronically.
== END 2023-02-04 08:15 | disposition home or self-care (01) ==
LOC: EN 05:32 → AC 05:32
PROVIDERS: PCP Student in an Organized Health Care Education/Training Program; Referring Provider Student in an Organized Health Care Education/Training Program; Visit Provider Internal Medicine Gastroenterology
PROC: 0DJD8ZZ Inspection of Lower Intestinal Tract, Via Natural or Artificial Opening Endoscopic (ICD-10-PCS; CPT 45378; principal; 2023-02-04 06:25)
DX: Z12.11 Encounter for screening for malignant neoplasm of colon (principal); K86.89 Other specified diseases of pancreas; K52.9 Noninfective gastroenteritis and colitis, unspecified
CPT/HCPCS: 45380; 88305; 88313; J7120; J2405

== ENCOUNTER → 2024-06-12 | Outpatient (CLI) | payer MEDICARE, OTHER, SELFPAY ==
[2024-06-15 17:08] LABS: Pancreatic Elastase, Fecal > 800 (>200)
[2024-06-16 06:09] LABS: Calprotectin, Stool 7 ug/g (0-120)
== END | disposition home or self-care (01) ==
LOC: LAB 13:35
PROVIDERS: PCP Student in an Organized Health Care Education/Training Program; Referring Provider Student in an Organized Health Care Education/Training Program; Visit Provider Student in an Organized Health Care Education/Training Program
DX: K58.9 Irritable bowel syndrome, unspecified (principal)
CPT/HCPCS: 82653; 83630; 83993

== ENCOUNTER → 2024-12-11 | Outpatient (CLI) | payer MEDICARE, OTHER, SELFPAY | END | disposition home or self-care (01) | LOC: SL 19:52 | PROVIDERS: PCP Student in an Organized Health Care Education/Training Program; Referring Provider Student in an Organized Health Care Education/Training Program; Visit Provider Student in an Organized Health Care Education/Training Program | DX: G47.33 Obstructive sleep apnea (adult) (pediatric) (principal) | CPT/HCPCS: 95811 ==